=== PATIENT | female | born 1970 | race Caucasian/White ===

== ENCOUNTER → 2017-07-07 18:50 | Outpatient (REF) | payer BC, SELFPAY ==
[2017-07-07 19:31] LABS: Amphetamine/Metha Screen,Urine Negative ng/mL (<1000); Barbiturates Screen,Urine Negative ng/mL (<200); Benzodiazepines Screen,Urine Negative ng/mL (200); Cannabinoid Screen,Urine Negative ng/mL (<50); Cocaine Screen,Urine Negative ng/g (<300); Methadone Screen,Urine Negative ng/mL (<300); Opiate Screen,Urine Positive ng/mL (<300); Phencyclidine Screen,Urine Negative ng/mL (<25)
== END ==
LOC: LAB 18:50
PROVIDERS: Visit Provider Emergency Medicine
DX: Z79.891 Long term (current) use of opiate analgesic (principal)
CPT/HCPCS: 80305

== ENCOUNTER → 2017-08-07 10:11 | Outpatient (REF) | payer BC, SELFPAY ==
[2017-08-07 14:24] LABS: Amphetamine/Metha Screen,Urine Negative ng/mL (<1000); Barbiturates Screen,Urine Negative ng/mL (<200); Benzodiazepines Screen,Urine Negative ng/mL (200); Cannabinoid Screen,Urine Negative ng/mL (<50); Cocaine Screen,Urine Negative ng/g (<300); Methadone Screen,Urine Negative ng/mL (<300); Opiate Screen,Urine Positive ng/mL (<300); Phencyclidine Screen,Urine Negative ng/mL (<25)
== END ==
LOC: LAB 10:11
PROVIDERS: Visit Provider Nurse Practitioner Family
DX: Z79.899 Other long term (current) drug therapy (principal)
CPT/HCPCS: 80305

== ENCOUNTER → 2017-09-04 09:17 | Outpatient (CLI) | payer BC, SELFPAY ==
[2017-09-04 14:36] LABS: Amphetamine/Metha Screen,Urine Negative ng/mL (<1000); Barbiturates Screen,Urine Negative ng/mL (<200); Benzodiazepines Screen,Urine Negative ng/mL (200); Cannabinoid Screen,Urine Negative ng/mL (<50); Cocaine Screen,Urine Negative ng/g (<300); Methadone Screen,Urine Negative ng/mL (<300); Opiate Screen,Urine Negative ng/mL (<300); Phencyclidine Screen,Urine Negative ng/mL (<25)
== END ==
PROVIDERS: Visit Provider Nurse Practitioner Family
DX: Z79.899 Other long term (current) drug therapy (principal)
CPT/HCPCS: 80305

== ENCOUNTER → 2017-10-02 09:12 | Outpatient (CLI) | payer BC, SELFPAY ==
[2017-10-02 18:14] LABS: Amphetamine/Metha Screen,Urine Negative ng/mL (<1000); Barbiturates Screen,Urine Negative ng/mL (<200); Benzodiazepines Screen,Urine Negative ng/mL (200); Cannabinoid Screen,Urine Negative ng/mL (<50); Cocaine Screen,Urine Negative ng/g (<300); Methadone Screen,Urine Negative ng/mL (<300); Opiate Screen,Urine Negative ng/mL (<300); Phencyclidine Screen,Urine Negative ng/mL (<25)
[2017-10-02 18:21] LABS: Chol/HDL Ratio 7.1 (1-3.5); Cholesterol 300 mg/dL (140-200); HDL Cholesterol 42 mg/dL (29-89); LDL Cholesterol 204 mg/dL (0-130); Triglycerides 269 mg/dL (30-200); VLDL Cholesterol 54 mg/dL (0-40)
[2017-10-06 15:37] LABS: Vitamin D 25 Hydroxy 23.1 ng/mL (30.0-100.0)
[2017-10-12 19:08] LABS: Oxycodone (GC/MS) 658 ng/mL (Cutoff=100)
[2017-10-13 15:05] LABS: Opiates Negative (Cutoff=100); Oxymorphone (GC/MS) 1530 ng/mL (Cutoff=100)
== END ==
PROVIDERS: Visit Provider Nurse Practitioner Family
DX: Z79.899 Other long term (current) drug therapy (principal); R53.83 Other fatigue; E55.9 Vitamin D deficiency, unspecified
CPT/HCPCS: 80061; 80305; 80361; 80365; 82652; G0480

== ENCOUNTER → 2017-10-30 09:27 | Outpatient (CLI) | payer BC, SELFPAY ==
[2017-10-30 13:35] LABS: Amphetamine/Metha Screen,Urine Negative ng/mL (<1000); Barbiturates Screen,Urine Negative ng/mL (<200); Benzodiazepines Screen,Urine Negative ng/mL (200); Cannabinoid Screen,Urine Negative ng/mL (<50); Cocaine Screen,Urine Negative ng/g (<300); Methadone Screen,Urine Negative ng/mL (<300); Opiate Screen,Urine Negative ng/mL (<300); Phencyclidine Screen,Urine Negative ng/mL (<25)
== END ==
PROVIDERS: Visit Provider Nurse Practitioner Family
DX: Z79.899 Other long term (current) drug therapy (principal)
CPT/HCPCS: 80305

== ENCOUNTER 2017-11-11 14:06 | Outpatient (RCR) | payer BC, SELFPAY ==
--- NOTE | 2017-11-11 14:56 | HMH.PTOPEV ---
Rehab Outpatient Evaluation Rehab OP Evaluation Start: 11/11/17 14:44 Freq: Status: Active Protocol: Document 11/11/17 14:44 RANDI (Rec: 11/11/17 14:55 RANDI [id number]) Electronically Signed By Saleem Card, PT 11/11/17 14:44 Outpatient Therapy Subjective History Subjective History Pt reports h/o chronic LBP beginning after serious fall in 2002. Pt reports R > L sided LBP with severe radicular s/s from R hip to R foot at its worst. Pt reports previous MRI of lumbar spine revealed 'some disc buldges'. Chief Complaint Pain Spasms Stiff Paresthesia Weakness Symptom Type Ache Throb Sharp Dull Numbness Tingling Symptoms Relieved By Rest/Positioning Heat Symptoms Aggravated By Sitting Standing Bending/Stooping Physical Activity Twisting Lifting Prior Functional Limitations Lifting Housework Standing Walking Bending/Stooping Current Functional Limitations Lifting Housework Standing Sitting Walking Bending/Stooping Symptom Description Constant but Variable Level of pain today (0-10) 7 Pain scale - at its best (0-10) 7 Pain scale - at its worst (0-10) 9 Lumbopelvic Eval Posture Thoracic Spine Posture Standing Position Neutral Lumbar Spine Posture Standing Position Increased Lordosis Assistive device Assistive Devices None / NA Palapation tenderness left lumbar spinal tenderness Yes: 2/4 paraspinal tenderness Yes: 2/4 right lumbar spinal tenderness Yes: 3/4 paraspinal tenderness Yes: 3/4 buttock tenderness Yes: 3/4 Accessory Movement T-spine Vertebrae Accessory Movements Central P/A [place] that Elicit Symptoms T10 bilateral T11 bilateral T12
== END 2017-11-11 14:07 | disposition home or self-care (01) ==
LOC: PT 14:06
PROVIDERS: Family Provider Emergency Medicine; PCP Emergency Medicine; Visit Provider Nurse Practitioner Family
DX: M54.5 Low back pain (principal)
CPT/HCPCS: 97010; 97012; 97014; 97163; G0283

== ENCOUNTER → 2017-11-27 10:08 | Outpatient (CLI) | payer BC, SELFPAY ==
[2017-11-27 19:47] LABS: Amphetamine/Metha Screen,Urine Negative ng/mL (<1000); Barbiturates Screen,Urine Negative ng/mL (<200); Benzodiazepines Screen,Urine Negative ng/mL (200); Cannabinoid Screen,Urine Negative ng/mL (<50); Cocaine Screen,Urine Negative ng/g (<300); Methadone Screen,Urine Negative ng/mL (<300); Opiate Screen,Urine Positive ng/mL (<300); Phencyclidine Screen,Urine Negative ng/mL (<25)
== END ==
PROVIDERS: Visit Provider Nurse Practitioner Family
DX: Z79.899 Other long term (current) drug therapy (principal)
CPT/HCPCS: 80305

== ENCOUNTER → 2017-12-28 09:51 | Outpatient (CLI) | payer BC, SELFPAY ==
[2017-12-28 14:23] LABS: Amphetamine/Metha Screen,Urine Negative ng/mL (<1000); Barbiturates Screen,Urine Negative ng/mL (<200); Benzodiazepines Screen,Urine Negative ng/mL (200); Cannabinoid Screen,Urine Negative ng/mL (<50); Cocaine Screen,Urine Negative ng/g (<300); Methadone Screen,Urine Negative ng/mL (<300); Opiate Screen,Urine Positive ng/mL (<300); Phencyclidine Screen,Urine Negative ng/mL (<25)
[2017-12-30 02:12] LABS: Hep A Ab, IgM Negative (Negative); Hepatitis B Core Antibody IgM Negative (Negative); Hepatitis B Surface Antigen Negative (Negative)
[2017-12-31 08:03] LABS: Hepatitis C Antibody <0.1 s/co ratio (0.0-0.9)
== END ==
PROVIDERS: Visit Provider Nurse Practitioner Family
DX: Z79.899 Other long term (current) drug therapy (principal); Z20.5 Contact with and (suspected) exposure to viral hepatitis
CPT/HCPCS: 36415; 80074; 80305

== ENCOUNTER → 2018-01-25 10:20 | Outpatient (CLI) | payer BC, SELFPAY ==
[2018-01-25 13:38] LABS: Amphetamine/Metha Screen,Urine Negative ng/mL (<1000); Barbiturates Screen,Urine Negative ng/mL (<200); Benzodiazepines Screen,Urine Negative ng/mL (<200); Cannabinoid Screen,Urine Negative ng/mL (<50); Cocaine Screen,Urine Negative ng/mL (<300); Methadone Screen,Urine Negative ng/mL (<300); Opiate Screen,Urine Positive ng/mL (<300); Phencyclidine Screen,Urine Negative ng/mL (<25)
== END ==
PROVIDERS: Visit Provider Nurse Practitioner Family
DX: Z79.899 Other long term (current) drug therapy (principal)
CPT/HCPCS: 80305

== ENCOUNTER → 2018-02-26 09:11 | Outpatient (CLI) | payer BC, SELFPAY ==
[2018-02-26 14:24] LABS: Amphetamine/Metha Screen,Urine Negative ng/mL (<1000); Barbiturates Screen,Urine Negative ng/mL (<200); Benzodiazepines Screen,Urine Negative ng/mL (<200); Cannabinoid Screen,Urine Negative ng/mL (<50); Cocaine Screen,Urine Negative ng/mL (<300); Methadone Screen,Urine Negative ng/mL (<300); Opiate Screen,Urine Positive ng/mL (<300); Phencyclidine Screen,Urine Negative ng/mL (<25)
== END ==
PROVIDERS: Visit Provider Nurse Practitioner Family
DX: Z79.899 Other long term (current) drug therapy (principal)
CPT/HCPCS: 80305

== ENCOUNTER → 2018-05-18 13:43 | Outpatient (CLI) | payer BC, SELFPAY ==
[2018-05-18 15:31] LABS: Amphetamine/Metha Screen,Urine Negative ng/mL (<1000); Barbiturates Screen,Urine Negative ng/mL (<200); Benzodiazepines Screen,Urine Negative ng/mL (<200); Cannabinoid Screen,Urine Negative ng/mL (<50); Cocaine Screen,Urine Negative ng/mL (<300); Methadone Screen,Urine Negative ng/mL (<300); Opiate Screen,Urine Positive ng/mL (<300); Phencyclidine Screen,Urine Negative ng/mL (<25)
[2018-05-26 12:53] LABS: Opiates Negative ng/mL (Cutoff=100)
== END ==
PROVIDERS: PCP Nurse Practitioner Family; Visit Provider Nurse Practitioner Family
DX: Z79.899 Other long term (current) drug therapy (principal)
CPT/HCPCS: 80305; 80361; G0480

== ENCOUNTER → 2018-06-18 14:59 | Outpatient (CLI) | payer BC, SELFPAY ==
[2018-06-18 16:40] LABS: Amphetamine/Metha Screen,Urine Negative ng/mL (<1000); Barbiturates Screen,Urine Negative ng/mL (<200); Benzodiazepines Screen,Urine Negative ng/mL (<200); Cannabinoid Screen,Urine Negative ng/mL (<50); Cocaine Screen,Urine Negative ng/mL (<300); Methadone Screen,Urine Negative ng/mL (<300); Opiate Screen,Urine Positive ng/mL (<300); Phencyclidine Screen,Urine Negative ng/mL (<25)
== END ==
PROVIDERS: Emergency Medicine; Visit Provider Nurse Practitioner Family
DX: Z79.899 Other long term (current) drug therapy (principal)
CPT/HCPCS: 80305

== ENCOUNTER → 2018-06-21 13:13 | Outpatient (CLI) | payer BC, SELFPAY ==
[2018-06-21 14:30] LABS: Alanine Aminotransferase 56 U/L (12-78); Albumin Level 4.1 gm/dL (3.4-5.0); Albumin/Globulin Ratio 1.1 (1.1-1.8); Alkaline Phosphatase 78 U/L (46-116); Anion Gap 10.3 mEq/L (5-15); Aspartate Amino Transferase 28 U/L (15-37); Bilirubin,Total 0.3 mg/dL (0.2-1.0); Blood Urea Nitrogen 8 mg/dL (7-18); Calcium 9.7 mg/dL (8.5-10.1); Carbon Dioxide 30 mmol/L (21.0-32.0); Chloride 104 mmol/L (98-107); Chol/HDL Ratio 4.3 (1-3.5); Cholesterol 231 mg/dL (140-200); Creatinine,Serum 0.88 mg/dL (0.55-1.02); Estimated Glomerular Filt Rate 69 ml/min (>60); Free T4 (Free Thyroxine) 0.85 ng/dl (0.76-1.46); GFR (African American) 84 ML/MIN (>60); Globulin 3.7 gm/dl (1.3-3.2); Glucose 113 mg/dL (74-106); HDL Cholesterol 54 mg/dL (29-89); LDL Cholesterol 146 mg/dL (0-130); Potassium 4.3 mmoL/L (3.5-5.1); Sodium 140 mmol/L (136-145); Thyroid Stimulating Hormone 2.02 uIU/ml (0.358-3.740); Total Protein,Serum 7.8 gm/dL (6.4-8.2); Triglycerides 155 mg/dL (30-200); VLDL Cholesterol 31 mg/dL (0-40)
== END ==
PROVIDERS: Visit Provider Nurse Practitioner Family
DX: R53.83 Other fatigue (principal); E78.5 Hyperlipidemia, unspecified; E55.9 Vitamin D deficiency, unspecified
CPT/HCPCS: 80053; 80061; 82652; 84439; 84443

== ENCOUNTER → 2018-07-16 13:41 | Outpatient (CLI) | payer BC, SELFPAY ==
[2018-07-16 16:05] LABS: Amphetamine/Metha Screen,Urine Negative ng/mL (<1000); Barbiturates Screen,Urine Negative ng/mL (<200); Benzodiazepines Screen,Urine Negative ng/mL (<200); Cannabinoid Screen,Urine Negative ng/mL (<50); Cocaine Screen,Urine Negative ng/mL (<300); Methadone Screen,Urine Negative ng/mL (<300); Opiate Screen,Urine Positive ng/mL (<300); Phencyclidine Screen,Urine Negative ng/mL (<25)
== END ==
PROVIDERS: Visit Provider Nurse Practitioner Family
DX: Z79.899 Other long term (current) drug therapy (principal)
CPT/HCPCS: 80305

== ENCOUNTER → 2018-08-13 13:12 | Outpatient (CLI) | payer BC, SELFPAY ==
[2018-08-13 14:23] LABS: Amphetamine/Metha Screen,Urine Negative ng/mL (<1000); Barbiturates Screen,Urine Negative ng/mL (<200); Benzodiazepines Screen,Urine Negative ng/mL (<200); Cannabinoid Screen,Urine Negative ng/mL (<50); Cocaine Screen,Urine Negative ng/mL (<300); Methadone Screen,Urine Negative ng/mL (<300); Opiate Screen,Urine Positive ng/mL (<300); Phencyclidine Screen,Urine Negative ng/mL (<25)
== END ==
PROVIDERS: Visit Provider Emergency Medicine
DX: Z79.899 Other long term (current) drug therapy (principal)
CPT/HCPCS: 80305

== ENCOUNTER → 2018-09-09 14:07 | Outpatient (CLI) | payer BC, SELFPAY ==
--- NOTE | 2018-09-09 14:16 | MM_ITS ---
MM Dig screening mamm BI w/CAD CAD Screening COMPARISON: Digital mammograms with CAD 10/03/2016 and 02/02/2015 INDICATION: There is no personal or family history of breast cancer TECHNIQUE: Standard CC and MLO images were obtained. R2 CAD reviewed. FINDINGS: Scattered fibroglandular densities are seen in each breast. Again noted is a stable area of asymmetric glandular tissue upper outer quadrant left breast. There few benign-appearing microcalcifications is in each breast. There is a possible new nodular density lower central portion right breast at the 6:00 position. This likely is a small cyst or fibroadenoma but suggest follow-up ultrasound for additional evaluation. There are no suspicious microcalcifications in either breast. IMPRESSION: Fibrofatty parenchyma with possible new density right breast BI-RADS Category: 0 Need Additional Imaging Evaluation RECOMMENDED FOLLOW-UP: IMM - IMMEDIATE FOLLOW-UP RECOMMENDED (A letter has been sent to the patient regarding results of the study.)
--- NOTE | 2018-09-09 14:41 | MR_ITS ---
MR lumbar spine wo con, MR 3-d myelogram/MRCP Ordering Physician: Ellis White MD Patient Age: 47 years: Female HISTORY: Low back pain for 3 weeks. Right-sided low back pain. Right leg pain numbness tingling. HISTORY of sciatica TECHNIQUE: Sagittal STIR, T1, T2, axial T1 and T2. On 1.5T Siemens wide bore MRI. 3-D MR myelogram image set obtained & performed on MRI workstation. Additional sagittal thin section T2 weighted dataset obtained from this latter acquisition as well (---76 CPT) COMPARISON : January 2017 MRI lumbar spine FINDINGS The vertebral bodies are intact and the disc spaces been no compression fracture nor osseous lesion L5/S1. Central disc bulge/protrusion. . New feature since 2017. However it modest in size, remains fairly midline and does not does not impact the thecal sac on these images. But it does not appear to involve the exiting nerve root either. But it does not lateralize and does not involve foramen Neural foramen widely patent. Mild/moderate facet hypertrophy bilaterally. L4/5.. Moderate/ Moderate central canal spinal stenosis-overall appears more pronounced than 2017. This this narrowing the central canal is due mainly due to the prominent posterior elements, with generous ligamentum flavum along with moderate facet hypertrophy at this level narrowing the posterior spinal canal... Ligament flavum measures over 5 mm on left. Also mild mild diffuse disc bulge most evident towards left foramen,-appears similar to 2017 MRI. Above Features combine to yield Generous left foraminal encroachment..Surprising patient does not have left leg symptoms due to these features. There is mild/moderate right recess stenosis & foraminal encroachment L3/4. Disc intact with only scant disc bulge towards right foramen.. Mild facet hypertrophy/arthropathy.. Neural foramen widely patent L2/3. Disc intact. Scant posterior element hypertrophy.. Foramen widely patent bilateral. L1/2. Diffuse disc bulge.-Additional disc bulge central & just to the right of midline.. Although features slightly indents the anterior thecal sac midline and just the right of midline very slightly more evident. This appears similar to previous study on the sagittal image does appear to be perhaps very slightly more pronounced axial images. Minor posterior hypertrophic changes T 12/L1. Disc intact with only scant bulge hard disc to the left.. T11/T12. Minimal central spurring with minimal central disc protrusion. The conus ends appropriately at L1. 3-D MR myelogram image set nicely demonstrates more pronounced appearing spinal stenosis at the L4/5 level. This image sequence supports progressive narrowing of the thecal sac at L4/5.. Also note mild anterior indentation of thecal sac L1/2 from the previous fairly stable disc bulge/mild protrusion. IMPRESSION 1.... L4/5. Mild/Moderate spinal stenosis, which appears to have progressed since 2017 MRI.- The L4/5 Central canal stenosis is mainly due to posterior element hypertrophy:-with generous ligamentum flavum along with moderate facet hypertrophy at this level mainly narrowing the spinal canal. There is also mild disc bulge which becomes most evident towards left foramen. Features also yields generous left foraminal encroachment, & less pronounced mild/moderate right foraminal encroachment. 2.... L5/S1. Central disc protrusion at L5/S1 which extends slightly caudal-but remains midline & does not appear to impact the thecal sac. This Is a New feature versus 2007 (but does not appear to impact relevant structures).. 3....... L 1/2. Diffuse disc bulge with additional disc bulge central and just right of midline. This appears similar to previous study. Question only very slightly more evident..... Features Mildly indent anter
== END ==
PROVIDERS: PCP Emergency Medicine; Visit Provider Emergency Medicine
DX: Z12.31 Encounter for screening mammogram for malignant neoplasm of breast (principal); M54.5 Low back pain
CPT/HCPCS: 72148; 76376; 77067

== ENCOUNTER → 2018-09-10 13:52 | Outpatient (CLI) | payer BC, SELFPAY ==
[2018-09-10 14:55] LABS: Amphetamine/Metha Screen,Urine Negative ng/mL (<1000); Barbiturates Screen,Urine Negative ng/mL (<200); Benzodiazepines Screen,Urine Negative ng/mL (<200); Cannabinoid Screen,Urine Negative ng/mL (<50); Cocaine Screen,Urine Negative ng/mL (<300); Methadone Screen,Urine Negative ng/mL (<300); Opiate Screen,Urine Negative ng/mL (<300); Phencyclidine Screen,Urine Negative ng/mL (<25)
== END ==
PROVIDERS: Visit Provider Emergency Medicine
DX: Z79.899 Other long term (current) drug therapy (principal)
CPT/HCPCS: 80305

== ENCOUNTER → 2018-09-29 10:41 | Outpatient (CLI) | payer BC, SELFPAY ==
--- NOTE | 2018-09-29 10:42 | US_ITS ---
US breast RT complete INDICATION: Follow-up abnormal mammogram ORDERING PHYSICIAN: Ellis White MD PATIENT AGE: 48 years COMPARISON: None TECHNIQUE: Ultrasound performed of the right breast along with axilla FINDINGS: There is a 6 mm hypoechoic nodule in the 6:00 region near the nipple which does correspond to the mammographic abnormality. There is posterior acoustical enhancement. There are some low-level echoes within the nodule however, this could be due to reverberation artifact. Is felt to represent a cyst. The margins are however slightly irregular. No other abnormalities are evident. IMPRESSION: Mammographic abnormality likely corresponds to a complex cyst. Recommend 3 month sonographic and mammographic follow-up to confirm stability. Spot compression images of the nodule could be performed at that time as well BI-RADS Category: 3 Probably Benign Finding Short Term Follow-up RECOMMENDED FOLLOW-UP: 3M - 3 MONTH FOLLOWUP (A letter has been sent to the patient regarding results of the study.)
== END ==
PROVIDERS: PCP Emergency Medicine; Visit Provider Emergency Medicine
DX: R92.8 Other abnormal and inconclusive findings on diagnostic imaging of breast (principal)
CPT/HCPCS: 76641

== ENCOUNTER → 2018-11-09 14:43 | Outpatient (CLI) | payer BC, SELFPAY ==
[2018-11-09 16:16] LABS: Amphetamine/Metha Screen,Urine Negative ng/mL (<1000); Barbiturates Screen,Urine Negative ng/mL (<200); Benzodiazepines Screen,Urine Negative ng/mL (<200); Cannabinoid Screen,Urine Negative ng/mL (<50); Cocaine Screen,Urine Negative ng/mL (<300); Methadone Screen,Urine Negative ng/mL (<300); Opiate Screen,Urine Negative ng/mL (<300); Phencyclidine Screen,Urine Negative ng/mL (<25)
[2018-11-16 06:21] LABS: Opiates Negative ng/mL (Cutoff=100)
== END ==
PROVIDERS: Visit Provider Nurse Practitioner Family
DX: Z79.899 Other long term (current) drug therapy (principal)
CPT/HCPCS: 80305; 80361; G0480

== ENCOUNTER → 2018-12-10 13:08 | Outpatient (CLI) | payer BC, SELFPAY ==
[2018-12-10 17:41] LABS: Amphetamine/Metha Screen,Urine Negative ng/mL (<1000); Barbiturates Screen,Urine Negative ng/mL (<200); Benzodiazepines Screen,Urine Negative ng/mL (<200); Cannabinoid Screen,Urine Negative ng/mL (<50); Cocaine Screen,Urine Negative ng/mL (<300); Methadone Screen,Urine Negative ng/mL (<300); Opiate Screen,Urine Positive ng/mL (<300); Phencyclidine Screen,Urine Negative ng/mL (<25)
[2018-12-20 03:12] LABS: Opiates Negative ng/mL (Cutoff=100)
== END ==
PROVIDERS: Visit Provider Nurse Practitioner Family
DX: Z79.899 Other long term (current) drug therapy (principal); G89.29 Other chronic pain
CPT/HCPCS: 80305; 80361; G0480

== ENCOUNTER → 2018-12-30 13:03 | Outpatient (CLI) | payer BC, SELFPAY ==
--- NOTE | 2018-12-30 13:05 | US_ITS ---
US breast RT complete INDICATION: Follow-up abnormal mammogram ORDERING PHYSICIAN: Ellis White MD PATIENT AGE: 48 years COMPARISON: 09/29/2018 TECHNIQUE: Complete breast ultrasound performed with axilla FINDINGS: There is a persistent 5 mm hypoechoic nodule in the o'clock region of the right breast with some posterior acoustical enhancement. There are some low-level internal echoes which could be due to the small size or but could be due to some underlying debris. The nodule is oriented area of the lateral to the chest wall and is not significantly changed probably benign. IMPRESSION: No change in the hypoechoic 5 mm nodule in the 6:00 region of the right breast. May be due to complex cyst. Continued follow-up recommended BI-RADS Category: 3 Probably Benign Finding Short Term Follow-up RECOMMENDED FOLLOW-UP: 6M - 6 MONTH FOLLOW-UP (A letter has been sent to the patient regarding results of the study.)
--- NOTE | 2018-12-30 13:07 | MM_ITS ---
MM Dig mamm DX unilat RT CAD COMPARISON: Digital mammograms with CAD 09/09/2018 INDICATION: Short term follow-up of asymmetric density right breast TECHNIQUE: Spot compression MLO and CC views FINDINGS: The small benign-appearing nodular densities again seen which is stable and unchanged in size and appearance from the previous exam. The breasts is otherwise composed primarily of fat with very minimal scattered fibroglandular densities noted. IMPRESSION: Stable benign-appearing density right breast shown to be likely due to a complex cyst on previous ultrasound, recommend the patient continue with yearly screening mammography BI-RADS Category: 2 Benign Finding(s) RECOMMENDED FOLLOW-UP: 1YR - 1 YEAR FOLLOW-UP (A letter has been sent to the patient regarding results of the study.)
== END ==
PROVIDERS: PCP Emergency Medicine; Visit Provider Emergency Medicine
DX: N63.0 Unspecified lump in unspecified breast (principal)
CPT/HCPCS: 76641; 77065

== ENCOUNTER → 2019-01-10 10:13 | Outpatient (CLI) | payer BC, SELFPAY ==
--- NOTE | 2019-01-10 10:31 | XR_ITS ---
XR hand RT min 3V HISTORY: Pain ITS.REASON: ARTHRALGIA MULTIPLE SITES, BILAT HAND ARTHRITIS ORDERING PHYSICIAN: Roxanne Chong APRN PATIENT AGE: 48 years COMPARISON: 05/22/2015 FINDINGS: No fracture or dislocation. No lytic or blastic change. There is normal mineralization.. The joint spaces are well-preserved. No significant degenerative/arthritic changes. No erosive changes evident.. IMPRESSION: Negative, no acute finding
--- NOTE | 2019-01-10 10:31 | XR_ITS ---
XR foot LT min 3V HISTORY: ITS.REASON: ARTHRALGIA MULTIPLE SITES ORDERING PHYSICIAN: Roxanne Chong APRN PATIENT AGE: 48 years COMPARISON: The FINDINGS: No fracture or dislocation. No lytic or blastic change. There is normal mineralization.. The joint spaces are well-preserved. There are minimal osteoarthritic changes at the first metatarsophalangeal joint. Bony hypertrophic changes are present dorsally in the mid foot. IMPRESSION: Mild degenerative changes as described above
--- NOTE | 2019-01-10 10:31 | XR_ITS ---
XR hand LT min 3V HISTORY: Pain, ITS.REASON: ARTHRALGIA MULTIPLE SITES, ARTHRITIS BILAT HANDS ORDERING PHYSICIAN: Roxanne Chong APRN PATIENT AGE: 48 years FINDINGS: No fracture or dislocation. No lytic or blastic change. There is normal mineralization.. The joint spaces are well-preserved. No bony erosive process or significant degenerative change evident. IMPRESSION: Negative left hand. No significant change from 05/22/2015
--- NOTE | 2019-01-10 10:31 | XR_ITS ---
XR foot RT min 3V HISTORY: Foot pain ITS.REASON: ARTHRALGIA MULTIPLE SITES ORDERING PHYSICIAN: Roxanne Chong APRN PATIENT AGE: 48 years COMPARISON: None FINDINGS: There are minimal osteoarthritic changes at the first MTP joint. No fracture or dislocation. No lytic or blastic change. There is a thin 2 mm linear opacity along the plantar surface and distal aspect of the fifth metatarsal suspicious for a small foreign body such as a sliver of glass. Otherwise negative. IMPRESSION: 1. Minimal osteoarthritic change first MTP joint. 2. Suspect a small foreign body such as a sliver of glass along the distal aspect of the fifth metatarsal plantar aspect
[2019-01-10 10:46] LABS: Basophils % 0.5 % (0.1-2.0); Eosinophils # 0.1 K/mm3 (0.0-0.4); Eosinophils % 1.6 % (0.1-12.0); Hematocrit 41.6 % (37.0-47.0); Hemoglobin 13.8 g/dL (12.2-16.2); Lymphocytes # 2.5 K/mm3 (0.7-4.5); Lymphocytes % 46.9 % (10-50); Mean Corpuscular HGB Conc 33.1 g/dL (31.8-35.4); Mean Corpuscular Hemoglobin 29.9 pg (27.0-31.2); Mean Corpuscular Volume 90.3 fl (81-99); Mean Platelet Volume 8.8 fl (7.4-10.4); Monocytes # 0.3 K/mm3 (0.1-1.0); Monocytes % 5.5 % (1.7-9.3); Neutrophils # 2.4 K/mm3 (1.8-7.8); Neutrophils % 45.5 % (37.0-80.0); Platelet Count 288 K/mm3 (142-424); Red Blood Count 4.61 M/mm3 (4.20-5.40); Red Cell Distribution Width 13.3 % (11.5-17.5); White Blood Count 5.3 K/mm3 (4.8-10.8)
[2019-01-10 11:54] LABS: Erythrocyte Sedimentation Rate 19 mm/hr (0-20)
[2019-01-10 12:30] LABS: Alanine Aminotransferase 42 U/L (12-78); Albumin/Globulin Ratio 1.1 (1.1-1.8); Alkaline Phosphatase 63 U/L (46-116); Anion Gap 14.9 mEq/L (5-15); Aspartate Amino Transferase 23 U/L (15-37); Bilirubin,Total 0.2 mg/dL (0.2-1.0); Blood Urea Nitrogen 8 mg/dL (7-18); Calcium 9.4 mg/dL (8.5-10.1); Carbon Dioxide 29 mmol/L (21.0-32.0); Chloride 105 mmol/L (98-107); Cholesterol 201 mg/dL (140-200); Creatinine,Serum 0.95 mg/dL (0.55-1.02); Estimated Glomerular Filt Rate 63 ml/min (>60); GFR (African American) 76 ML/MIN (>60); Globulin 3.6 gm/dl (1.3-3.2); Glucose 124 mg/dL (74-106); HDL Cholesterol 40 mg/dL (29-89); LDL Cholesterol 126 mg/dL (0-130); Potassium 3.9 mmoL/L (3.5-5.1); Sodium 145 mmol/L (136-145); Thyroid Stimulating Hormone 4.23 uIU/ml (0.358-3.740); Total Protein,Serum 7.6 gm/dL (6.4-8.2); Triglycerides 177 mg/dL (30-200); VLDL Cholesterol 35 mg/dL (0-40)
[2019-01-10 12:40] LABS: C-Reactive Protein < 0.2 mg/L (0.0-0.9)
[2019-01-11 16:37] LABS: Free T4 (Free Thyroxine) 0.99 ng/dl (0.76-1.46)
[2019-01-11 17:16] LABS: Hemoglobin A1C 6.6 % (0.0-7.0)
[2019-01-12 13:54] LABS: Vitamin D 25 Hydroxy 33.2 ng/mL (30.0-100.0)
== END ==
PROVIDERS: Visit Provider Nurse Practitioner Family
DX: I10 Essential (primary) hypertension (principal); E78.2 Mixed hyperlipidemia; M19.90 Unspecified osteoarthritis, unspecified site; M25.50 Pain in unspecified joint; E55.9 Vitamin D deficiency, unspecified; L30.9 Dermatitis, unspecified; R79.89 Other specified abnormal findings of blood chemistry; R73.9 Hyperglycemia, unspecified
CPT/HCPCS: 36415; 73130; 73630; 80053; 80061; 82652; 83036; 84439; 84443; 85025; 85651; 86140

== ENCOUNTER → 2019-01-25 13:29 | Outpatient (POV) | payer BC, SELFPAY | PROVIDERS: Visit Provider Dermatology | DX: Z00.00 Encounter for general adult medical examination without abnormal findings (principal) ==

== ENCOUNTER → 2019-02-07 13:55 | Outpatient (POV) | payer BC, SELFPAY ==
[2019-02-07 14:20] VITALS: BP 169/89; PULSE 121; RESP 18; O2SAT 99; BMI 38.4
[2019-02-07 14:48] VITALS: BP 169/89; PULSE 121; RESP 18; O2SAT 98; BMI 38.4
--- NOTE | 2019-02-07 15:33 | HMH.PMCON ---
Assessment and Plan (1) Spinal stenosis Current visit: No Status: Chronic Qualifiers: Spinal region: lumbar Category: Medical Code(s): M48.00 - Spinal stenosis, site unspecified (2) Lumbar back pain Current visit: No Status: Chronic Category: Medical Code(s): M54.5 - Low back pain - Assessment and plan all Dx Assessment and Plan for all problems:: We will start with an L4-L5 lumbar epidural steroid injection. Patient is not a narcotic candidate in regards to our clinic. Patient instructed to talk to her primary care physician in regards to her medication. Patient may be a good vertiflex procedure candidate. I gave her information in regards to this. I will follow-up with her after injection reassess her symptoms at that time she is not on any anticoagulation therapy she is continuing a home stretching program. She is failed physical therapy, anti-inflammatories, medications. Dr. Alcala has reviewed this note and agrees with this plan of care. This note was dictated using voice recognition software and may contain errors or omissions HPI - Data of Consult Consult date: 02/07/19 Requesting Physician: Justine Gomez APRN Primary Care Provider: Roxanne Chong APRN - Consult Narrative Reason for consult: Back pain History of present illness: Ms. Cohn is a 48 year old female who presents today to discuss her back pain. She was seen previously several years ago and was given an SI joint injection. After that we did not follow-up with her. Patient is currently complaining of pain when she is standing and walking that is relieved when she is leaning forward. She does have significant ligamentum flavum hypertrophy along with canal stenosis at L4-L5 L5-S1. Patient and I discussed potential epidural injections along with vertiflex procedure. Patient is currently on Percocet from her primary care physician. Today she is asking about increasing her narcotic medication I discussed that she would have to talk about this with her PCP. CC: Justine Gomez APRN [facility] History I have reviewed the patient's past medical history: Yes Medical History: Reports:: Hypertension *Have you ever received a pneumonia vaccine?: Yes *Have you received a flu vaccine this season?: Yes Other Medical History: Reports: Fibromyalgia, Other Laterality Cases: Bilateral: Arthroscopy Shoulder, Tonsillectomy Other Surgeries: Yes: No Previous Surgery, Cholecystectomy, Hysterectomy-Partial, Other Amputation: No Fractures: No - *Social History Smoking Status: Never smoker Alcohol Intake: never Alcohol Intake Frequency:: other Substance Use Type: denies use *Occupational Status:: other Housing: house Household Members: spouse *Travel in the last 8 weeks: None Family Hx:: No significant family history Review of Systems - Review of Systems ROS General: no recent weight change, no fever, no sleep disturbances Respiratory: no cough, no shortness of air, no recurring pulmonary infections Cardiovascular/Peripheral Vascular: No chest pain, No palpitations, no edema, no shortness of breath. Gastrointestinal: no incontinence, normal bowel movements reported Genitourinary: no incontinence Musculoskeletal: Back pain Psychiatric: normal mood/ affect Neurological: [denies weakness in extremities], [denies balance issues] Meds Home Medications Medication Instructions Recorded Confirmed Type fluticasone propionate 50 1 spray INTRANASAL QDAY 30 Days 07/16/18 12/10/18 Rx mcg/actuation nasal #9.9 g spray,suspension pregabalin 75 mg capsule 75 mg PO BID #60 cap 07/16/18 12/10/18 Rx bupropion HCl 75 mg tablet 75 mg PO BID #60 tab 08/13/18 12/10/18 Rx ergocalciferol (vitamin D2) 50,000 50,000 unit PO QWEEK #4 cap 09/05/18 12/10/18 Rx unit capsule hydrochlorothiazide 12.5 mg capsule 12.5 mg PO DAILY #90 cap 10/11/18 12/10/18 Rx loratadine 10 mg tablet 10 mg PO DAILY #30 tab 11/09/18 12/10/18 Rx oxycodone
--- NOTE | 2019-02-07 15:37 | P.CONS_ITS ---
Assessment and Plan (1) Spinal stenosis Current visit: No Status: Chronic Qualifiers: Spinal region: lumbar Category: Medical Code(s): M48.00 - Spinal stenosis, site unspecified (2) Lumbar back pain Current visit: No Status: Chronic Category: Medical Code(s): M54.5 - Low back pain - Assessment and plan all Dx Assessment and Plan for all problems:: We will start with an L4-L5 lumbar epidural steroid injection. Patient is not a narcotic candidate in regards to our clinic. Patient instructed to talk to her primary care physician in regards to her medication. Patient may be a good vertiflex procedure candidate. I gave her information in regards to this. I will follow-up with her after injection reassess her symptoms at that time she is not on any anticoagulation therapy she is continuing a home stretching program. She is failed physical therapy, anti-inflammatories, medications. Dr. Alcala has reviewed this note and agrees with this plan of care. This note was dictated using voice recognition software and may contain errors or omissions HPI - Data of Consult Consult date: 02/07/19 Requesting Physician: Justine Gomez APRN Primary Care Provider: Roxanne Chong APRN - Consult Narrative Reason for consult: Back pain History of present illness: Ms. Cohn is a 48 year old female who presents today to discuss her back pain. She was seen previously several years ago and was given an SI joint injection. After that we did not follow-up with her. Patient is currently complaining of pain when she is standing and walking that is relieved when she is leaning forward. She does have significant ligamentum flavum hypertrophy along with canal stenosis at L4-L5 L5-S1. Patient and I discussed potential epidural injections along with vertiflex procedure. Patient is currently on Percocet from her primary care physician. Today she is asking about increasing her narcotic medication I discussed that she would have to talk about this with her PCP. CC: Justine Gomez APRN [facility] History I have reviewed the patient's past medical history: Yes Medical History: Reports:: Hypertension *Have you ever received a pneumonia vaccine?: Yes *Have you received a flu vaccine this season?: Yes Other Medical History: Reports: Fibromyalgia, Other Laterality Cases: Bilateral: Arthroscopy Shoulder, Tonsillectomy Other Surgeries: Yes: No Previous Surgery, Cholecystectomy, Hysterectomy- Partial, Other Amputation: No Fractures: No - *Social History Smoking Status: Never smoker Alcohol Intake: never Alcohol Intake Frequency:: other Substance Use Type: denies use *Occupational Status:: other Housing: house Household Members: spouse *Travel in the last 8 weeks: None Family Hx:: No significant family history Review of Systems - Review of Systems ROS General: no recent weight change, no fever, no sleep disturbances Respiratory: no cough, no shortness of air, no recurring pulmonary infections Cardiovascular/Peripheral Vascular: No chest pain, No palpitations, no edema, no shortness of breath. Gastrointestinal: no incontinence, normal bowel movements reported Genitourinary: no incontinence Musculoskeletal: Back pain Psychiatric: normal mood/ affect Neurological: [denies weakness in extremities], [denies balance issues] Meds Home Medications Medication Instructions Recorded Confirmed Type fluticasone propionate 50 1 spray INTRANASAL QDAY 30 Days 07/16/1812/10
== END ==
PROVIDERS: PCP Nurse Practitioner Family; Visit Provider Clinical Nurse Specialist Family Health
DX: M48.00 Spinal stenosis, site unspecified (principal); M54.5 Low back pain
CPT/HCPCS: 99212

== ENCOUNTER → 2019-03-02 13:43 | Outpatient (CLI) | payer BC, SELFPAY ==
[2019-03-02 17:51] LABS: Amphetamine/Metha Screen,Urine Negative ng/mL (<1000); Barbiturates Screen,Urine Negative ng/mL (<200); Benzodiazepines Screen,Urine Negative ng/mL (<200); Cannabinoid Screen,Urine Negative ng/mL (<50); Cocaine Screen,Urine Negative ng/mL (<300); Methadone Screen,Urine Negative ng/mL (<300); Opiate Screen,Urine Negative ng/mL (<300); Phencyclidine Screen,Urine Negative ng/mL (<25)
[2019-03-12 05:08] LABS: Oxycodone (GC/MS) 182 ng/mL (Cutoff=100)
[2019-03-12 18:01] LABS: Opiates Negative (Cutoff=100); Oxymorphone (GC/MS) 186 ng/mL (Cutoff=100)
== END ==
PROVIDERS: Visit Provider Emergency Medicine
DX: Z79.899 Other long term (current) drug therapy (principal)
CPT/HCPCS: 80305; 80361; 80365; G0480

== ENCOUNTER → 2019-03-28 09:39 | Outpatient (POV) | payer BC, SELFPAY ==
[2019-03-28 10:04] VITALS: BP 154/98; PULSE 78; RESP 18; O2SAT 99; BMI 37.8
--- NOTE | 2019-03-28 10:32 | HMH.PAINSOAP ---
[facility] Pain Management SOAP Note Subjective:: Patient is a pleasant 48-year-old white female who presents today for follow-up after epidural steroid injection. Patient did not get any relief from her epidural steroid injection. Her biggest complaint is pain when she is standing or walking. She has to bend over to alleviate this. She had spinal stenosis at the L4-L5 level. She is uninterested in any surgical intervention. She is interested in a vertical flex. I do believe it would be beneficial for her at this time she is unable to walk more than 5 minutes and not able to stand more than 10 minutes. She has to sit and alleviate her pain. She has tried and failed NSAIDs, anti-inflammatories, narcotic medications and injection therapy she has been treated conservatively for over 6 months. She is had this pain for over a year. ROS General: no recent weight change, no fever, no sleep disturbances Respiratory: no cough, no shortness of air, no recurring pulmonary infections Cardiovascular/Peripheral Vascular: No chest pain, No palpitations, no edema, no shortness of breath. Gastrointestinal: no incontinence, normal bowel movements reported Genitourinary: no incontinence Musculoskeletal: Back pain, leg pain Psychiatric: normal mood/ affect Neurological: [denies weakness in extremities], [denies balance issues] Objective:: Physical Exam General: Alert and oriented x3, no acute distress, pleasant and cooperative, [on room air] Lungs: Resps E/U, Symmetrical chest expansion, Eyes: PERRL Musculoskeletal: Flexion and extension of lumbar spine somewhat guarded secondary to pain, deep tendon reflexes normal, strength in upper and lower extremities [5/5], normal gait noted Neurological: speech clear, finisher wallboard and plasterboard equal, no gross sensory deficits Assessment:: Degenerative disc disease lumbar spine with lumbar radiculopathy and spinal stenosis with neurogenic claudication Plan:: We will schedule a flexion and extension and AP x-ray of the lumbar vertebrae to see if she is a vert a flex candidate. Believe an L4-L5 for to flex procedure would be beneficial for her. Patient is not on any anticoagulation therapy. She is continuing a home stretching program. I will follow-up with her after her procedure reassess her symptoms at that time she is been instructed to call the office if she has any issues prior to her next appointment. Dr. Alcala has reviewed this note and agrees with this plan of care. This note was dictated using voice recognition software and may contain errors or omissions [facility] History I have reviewed the patient's past medical history: Yes Medical History: Reports:: Hypertension Denies:: Cancer, Diabetes Mellitus Type 1, Diabetes Mellitus Type 2, MRSA, Seizures *Have you ever received a pneumonia vaccine?: Yes *Have you received a flu vaccine this season?: Yes Other Medical History: Reports: Fibromyalgia, Other Laterality Cases: Left: Arthroscopy Shoulder, Bilateral: Tonsillectomy Other Surgeries: Yes: No Previous Surgery, Cholecystectomy, Hysterectomy-Partial, Other Amputation: No Fractures: No - *Social History Smoking Status: Never smoker Alcohol Intake: never Alcohol Intake Frequency:: other Substance Use Type: denies use *Occupational Status:: other Housing: house Household Members: spouse *Travel in the last 8 weeks: None Family Hx:: Diabetes, Hypertension, Heart Attack, Cancer
--- NOTE | 2019-03-28 10:38 | P.CONS_ITS ---
[facility] Pain Management SOAP Note Subjective:: Patient is a pleasant 48-year-old white female who presents today for follow-up after epidural steroid injection. Patient did not get any relief from her epidural steroid injection. Her biggest complaint is pain when she is standing or walking. She has to bend over to alleviate this. She had spinal stenosis at the L4-L5 level. She is uninterested in any surgical intervention. She is interested in a vertical flex. I do believe it would be beneficial for her at this time she is unable to walk more than 5 minutes and not able to stand more than 10 minutes. She has to sit and alleviate her pain. She has tried and failed NSAIDs, anti-inflammatories, narcotic medications and injection therapy she has been treated conservatively for over 6 months. She is had this pain for over a year. ROS General: no recent weight change, no fever, no sleep disturbances Respiratory: no cough, no shortness of air, no recurring pulmonary infections Cardiovascular/Peripheral Vascular: No chest pain, No palpitations, no edema, no shortness of breath. Gastrointestinal: no incontinence, normal bowel movements reported Genitourinary: no incontinence Musculoskeletal: Back pain, leg pain Psychiatric: normal mood/ affect Neurological: [denies weakness in extremities], [denies balance issues] Objective:: Physical Exam General: Alert and oriented x3, no acute distress, pleasant and cooperative, [on room air] Lungs: Resps E/U, Symmetrical chest expansion, Eyes: PERRL Musculoskeletal: Flexion and extension of lumbar spine somewhat guarded secondary to pain, deep tendon reflexes normal, strength in upper and lower extremities [5/5], normal gait noted Neurological: speech clear, central supply assistant equal, no gross sensory deficits Assessment:: Degenerative disc disease lumbar spine with lumbar radiculopathy and spinal stenosis with neurogenic claudication Plan:: We will schedule a flexion and extension and AP x-ray of the lumbar vertebrae to see if she is a vert a flex candidate. Believe an L4-L5 for to flex procedure would be beneficial for her. Patient is not on any anticoagulation therapy. She is continuing a home stretching program. I will follow-up with her after her procedure reassess her symptoms at that time she is been instructed to call the office if she has any issues prior to her next appointment. Dr. Alcala has reviewed this note and agrees with this plan of care. This note was dictated using voice recognition software and may contain errors or omissions [facility] History I have reviewed the patient's past medical history: Yes Medical History: Reports:: Hypertension Denies:: Cancer, Diabetes Mellitus Type 1, Diabetes Mellitus Type 2, MRSA, Seizures *Have you ever received a pneumonia vaccine?: Yes *Have you received a flu vaccine this season?: Yes Other Medical History: Reports: Fibromyalgia, Other Laterality Cases: Left: Arthroscopy Shoulder, Bilateral: Tonsillectomy Other Surgeries: Yes: No Previous Surgery, Cholecystectomy, Hysterectomy- Partial, Other Amputation: No Fractures: No - *Social History Smoking Status: Never smoker Alcohol Intake: never Alcohol Intake Frequency:: other Substance Use Type: denies use *Occupational Status:: other Housing: house Household Members: spouse *Travel in the last 8 weeks: None Family Hx:: Diabetes, Hypertension, Heart Attack, Cancer
--- NOTE | 2019-03-28 13:15 | XR_ITS ---
PROCEDURE: XR LUMBAR SPINE 2-3V CLINICAL INDICATION: BACK PAIN COMPARISON: No exams were available for comparison FINDINGS: Flexion and extension views are obtained of the lumbar spine showing no abnormal subluxation in flexion or extension. There is limited flexion and extension. Degenerate disc disease is present at L1-L2 L2-L3 L4-5 and L5-S1. Incidental note made of a left renal calculus measuring 5 mm. IMPRESSION: Degenerative changes lumbar spine with no abnormal subluxation in flexion or extension Left nephrolithiasis Dictated by: Erik Leroy MD 03/28/2019 13:40 Electronically signed by Erik Leroy MD in [place] 03/28/2019 13:40
== END ==
PROVIDERS: PCP Emergency Medicine; Visit Provider Clinical Nurse Specialist Family Health
DX: M48.062 Spinal stenosis, lumbar region with neurogenic claudication (principal); M51.16 Intervertebral disc disorders with radiculopathy, lumbar region
CPT/HCPCS: 72100; 99212

== ENCOUNTER → 2019-04-13 13:19 | Outpatient (CLI) | payer BC, SELFPAY ==
[2019-04-13 14:58] LABS: Amphetamine/Metha Screen,Urine Negative ng/mL (<1000); Barbiturates Screen,Urine Negative ng/mL (<200); Benzodiazepines Screen,Urine Negative ng/mL (<200); Cannabinoid Screen,Urine Negative ng/mL (<50); Cocaine Screen,Urine Negative ng/mL (<300); Methadone Screen,Urine Negative ng/mL (<300); Opiate Screen,Urine Negative ng/mL (<300); Phencyclidine Screen,Urine Negative ng/mL (<25)
[2019-04-21 09:52] LABS: Opiates Negative ng/mL (Cutoff=100)
== END ==
PROVIDERS: Visit Provider Emergency Medicine
DX: Z79.899 Other long term (current) drug therapy (principal); G89.29 Other chronic pain
CPT/HCPCS: 80305; 80361; G0480

== ENCOUNTER → 2019-04-28 08:26 | Outpatient (POV) | payer BC, SELFPAY ==
[2019-04-28 08:36] VITALS: BP 133/85; PULSE 92; RESP 18; O2SAT 98; BMI 36.8
--- NOTE | 2019-04-28 08:39 | HMH.PAINSOAP ---
[facility] Pain Management SOAP Note Subjective:: Patient is a pleasant 48-year-old white female who presents today for follow-up after superion vertiflex implant at L4-L5. Patient says she has started to develop significant pain in her right lower extremity. She says she is having difficulty walking. She says the pain starts in her right lower back with radiation into her right foot. Patient says that the pain worsens when she stands or walks. Patient did call the office yesterday and asked to come in this morning. She says that she is not getting any relief with her oral opiates. Patient does take Percocet 5 mg 1 tablet p.o. 4 times daily, as prescribed by her primary care provider. She also takes Lyrica. Review of Systems General: No recent weight changes, no fever, no sleep disturbances Respiratory: No cough, no shortness of air, no recurring pulmonary infections Cardiovascular/peripheral vascular: No chest pain, no palpitations, no edema, no shortness of breath Gastrointestinal: No new onset incontinence, normal bowel movements reported Genitourinary: No new onset incontinence Musculoskeletal: Back pain, right leg pain Psychiatric: Normal mood/affect Neurological: [Denies weakness in extremities], [denies balance issues] Objective:: Physical exam General: Alert and oriented x3, no acute distress, pleasant and cooperative, [on room air] Lungs: Respirations even and unlabored, symmetrical chest expansion Eyes: PERRL Musculoskeletal: Flexion and extension of lumbar spine somewhat guarded secondary to pain, deep tendon reflexes normal, strength in upper and lower extremities [5/5], [abnormal gait noted] Neurological: Speech clear, fighting vehicle systems maintainer equal, no gross sensory deficit Assessment:: Degenerative disc disease lumbar spine with spinal stenosis and neurogenic claudication symptoms at L4-L5 Plan:: We will order the patient prednisone 20 mg 1 tablet p.o. twice daily for 5 days. We will also order the patient Flexeril 10 mg 1 tablet p.o. 3 times daily for 5 days. We will see her back in the clinic on Thursday the following week to reassess her symptoms. Patient is scheduled to return to have her sutures removed. Patient's been instructed if her pain continues to call the office. Dr. Alcala has reviewed this note and agrees with this plan of care. This note was dictated using voice recognition software and make contain errors or omissions. [facility] History Medical History: Reports:: Diabetes Mellitus Type 2 (MEDICATED), Hypertension Denies:: Cancer, Diabetes Mellitus Type 1, Internal Pacemaker, MRSA, Seizures *Have you ever received a pneumonia vaccine?: Yes *Have you received a flu vaccine this season?: No Other Medical History: Reports: Fibromyalgia, Other. Denies: Blood Transfusion Reaction Laterality Cases: Left: Arthroscopy Shoulder, Bilateral: Tonsillectomy Other Surgeries: Yes: No Previous Surgery, Cholecystectomy, Hysterectomy-Partial, Other. No: Pacemaker Amputation: No Fractures: No - *Social History Smoking Status: Never smoker Alcohol Intake: never Alcohol Intake Frequency:: other Substance Use Type: denies use *Occupational Status:: other Housing: house Household Members: spouse *Travel in the last 8 weeks: None Family Hx:: Diabetes, Hypertension, Heart Attack, Cancer
--- NOTE | 2019-04-28 08:43 | P.CONS_ITS ---
[facility] Pain Management SOAP Note Subjective:: Patient is a pleasant 48-year-old white female who presents today for follow-up after superion vertiflex implant at L4-L5. Patient says she has started to develop significant pain in her right lower extremity. She says she is having difficulty walking. She says the pain starts in her right lower back with radiation into her right foot. Patient says that the pain worsens when she stands or walks. Patient did call the office yesterday and asked to come in this morning. She says that she is not getting any relief with her oral opiates. Patient does take Percocet 5 mg 1 tablet p.o. 4 times daily, as prescribed by her primary care provider. She also takes Lyrica. Review of Systems General: No recent weight changes, no fever, no sleep disturbances Respiratory: No cough, no shortness of air, no recurring pulmonary infections Cardiovascular/peripheral vascular: No chest pain, no palpitations, no edema, no shortness of breath Gastrointestinal: No new onset incontinence, normal bowel movements reported Genitourinary: No new onset incontinence Musculoskeletal: Back pain, right leg pain Psychiatric: Normal mood/affect Neurological: [Denies weakness in extremities], [denies balance issues] Objective:: Physical exam General: Alert and oriented x3, no acute distress, pleasant and cooperative, [on room air] Lungs: Respirations even and unlabored, symmetrical chest expansion Eyes: PERRL Musculoskeletal: Flexion and extension of lumbar spine somewhat guarded secondary to pain, deep tendon reflexes normal, strength in upper and lower extremities [5/5], [abnormal gait noted] Neurological: Speech clear, weaver hand equal, no gross sensory deficit Assessment:: Degenerative disc disease lumbar spine with spinal stenosis and neurogenic claudication symptoms at L4-L5 Plan:: We will order the patient prednisone 20 mg 1 tablet p.o. twice daily for 5 days. We will also order the patient Flexeril 10 mg 1 tablet p.o. 3 times daily for 5 days. We will see her back in the clinic on Thursday the following week to reassess her symptoms. Patient is scheduled to return to have her sutures removed. Patient's been instructed if her pain continues to call the office. Dr. Alcala has reviewed this note and agrees with this plan of care. This note was dictated using voice recognition software and make contain errors or omissions. [facility] History Medical History: Reports:: Diabetes Mellitus Type 2 (MEDICATED), Hypertension Denies:: Cancer, Diabetes Mellitus Type 1, Internal Pacemaker, MRSA, Seizures *Have you ever received a pneumonia vaccine?: Yes *Have you received a flu vaccine this season?: No Other Medical History: Reports: Fibromyalgia, Other. Denies: Blood Transfusion Reaction Laterality Cases: Left: Arthroscopy Shoulder, Bilateral: Tonsillectomy Other Surgeries: Yes: No Previous Surgery, Cholecystectomy, Hysterectomy-[place] l, Other. No: Pacemaker Amputation: No Fractures: No - *Social History Smoking Status: Never smoker Alcohol Intake: never Alcohol Intake Frequency:: other Substance Use Type: denies use *Occupational Status:: other Housing: house Household Members: spouse *Travel in the last 8 weeks: None Family Hx:: Diabetes, Hypertension, Heart Attack, Cancer
== END ==
PROVIDERS: PCP Emergency Medicine; Visit Provider Clinical Nurse Specialist Family Health
DX: M48.062 Spinal stenosis, lumbar region with neurogenic claudication (principal)
CPT/HCPCS: 99212

== ENCOUNTER → 2019-05-03 09:07 | Outpatient (POV) | payer BC, SELFPAY ==
[2019-05-03 09:21] VITALS: BP 160/91; PULSE 84; RESP 18; O2SAT 98; BMI 36.0
--- NOTE | 2019-05-03 10:01 | HMH.PAINSOAP ---
[facility] Pain Management SOAP Note Subjective:: She is a pleasant 48-year-old white female who presents today for follow-up after a superior onward to flex implant at L4-L5. Patient was having significant pain postprocedure however she was put on his round of steroids and is doing much better. She will have her stitches removed today. Patient states that her pain has improved significantly. She rates her pain a 4 out of 10 today. We will put her on some anti-inflammatories for the short-term to help with any kind of facet inflammation post for to flex procedure. Patient states that she cannot stand longer walk longer at this time. ROS General: no recent weight change, no fever, no sleep disturbances Respiratory: no cough, no shortness of air, no recurring pulmonary infections Cardiovascular/Peripheral Vascular: No chest pain, No palpitations, no edema, no shortness of breath. Gastrointestinal: no new onset incontinence, normal bowel movements reported Genitourinary: no new onset incontinence Musculoskeletal: Back pain, leg pain Psychiatric: normal mood/ affect Neurological: [denies new onset weakness in extremities], [denies new onset balance issues] Objective:: Physical Exam General: Alert and oriented x3, no acute distress, pleasant and cooperative, [on room air] Lungs: Resps E/U, Symmetrical chest expansion, Eyes: PERRL Musculoskeletal: Flexion and extension of lumbar spine somewhat guarded secondary to pain, deep tendon reflexes normal, strength in upper and lower extremities [5/5], normal gait noted Neurological: speech clear, correctional sergeant equal, no gross sensory deficits Assessment:: Spinal stenosis with neurogenic claudication Plan:: We will see the patient back in 1 week. Stitches were removed the incision was well approximated no sign symptoms of infection. Steri-Strips and skin glue were applied we will see her back in 1 week. We will start her on naproxen 500 mg 1 p.o. twice daily until then. Patient's been instructed to call the office if she has any issues prior to her next appointment. Dr. Alcala has reviewed this note and agrees with this plan of care. This note was dictated using voice recognition software and may contain errors or omissions [facility] History I have reviewed the patient's past medical history: Yes Medical History: Reports:: Diabetes Mellitus Type 2 (MEDICATED), Hypertension Denies:: Cancer, Diabetes Mellitus Type 1, Internal Pacemaker, MRSA, Seizures *Have you ever received a pneumonia vaccine?: No *Have you received a flu vaccine this season?: No Other Medical History: Reports: Fibromyalgia, Other. Denies: Blood Transfusion Reaction Laterality Cases: Left: Arthroscopy Shoulder, Bilateral: Tonsillectomy Other Surgeries: Yes: No Previous Surgery, Cholecystectomy, Hysterectomy-Partial, Other. No: Pacemaker Amputation: No Fractures: No - *Social History Smoking Status: Never smoker Alcohol Intake: never Alcohol Intake Frequency:: other Substance Use Type: denies use *Occupational Status:: other Housing: house Household Members: spouse *Travel in the last 8 weeks: None Family Hx:: Diabetes, Hypertension, Heart Attack, Cancer
--- NOTE | 2019-05-03 10:04 | P.CONS_ITS ---
[facility] Pain Management SOAP Note Subjective:: She is a pleasant 48-year-old white female who presents today for follow-up after a superior onward to flex implant at L4-L5. Patient was having significant pain postprocedure however she was put on his round of steroids and is doing much better. She will have her stitches removed today. Patient states that her pain has improved significantly. She rates her pain a 4 out of 10 today. We will put her on some anti-inflammatories for the short-term to help with any kind of facet inflammation post for to flex procedure. Patient states that she cannot stand longer walk longer at this time. ROS General: no recent weight change, no fever, no sleep disturbances Respiratory: no cough, no shortness of air, no recurring pulmonary infections Cardiovascular/Peripheral Vascular: No chest pain, No palpitations, no edema, no shortness of breath. Gastrointestinal: no new onset incontinence, normal bowel movements reported Genitourinary: no new onset incontinence Musculoskeletal: Back pain, leg pain Psychiatric: normal mood/ affect Neurological: [denies new onset weakness in extremities], [denies new onset balance issues] Objective:: Physical Exam General: Alert and oriented x3, no acute distress, pleasant and cooperative, [on room air] Lungs: Resps E/U, Symmetrical chest expansion, Eyes: PERRL Musculoskeletal: Flexion and extension of lumbar spine somewhat guarded secondary to pain, deep tendon reflexes normal, strength in upper and lower extremities [5/5], normal gait noted Neurological: speech clear, hospital sales representative equal, no gross sensory deficits Assessment:: Spinal stenosis with neurogenic claudication Plan:: We will see the patient back in 1 week. Stitches were removed the incision was well approximated no sign symptoms of infection. Steri-Strips and skin glue were applied we will see her back in 1 week. We will start her on naproxen 500 mg 1 p.o. twice daily until then. Patient's been instructed to call the office if she has any issues prior to her next appointment. Dr. Alcala has reviewed this note and agrees with this plan of care. This note was dictated using voice recognition software and may contain errors or omissions [facility] History I have reviewed the patient's past medical history: Yes Medical History: Reports:: Diabetes Mellitus Type 2 (MEDICATED), Hypertension Denies:: Cancer, Diabetes Mellitus Type 1, Internal Pacemaker, MRSA, Seizures *Have you ever received a pneumonia vaccine?: No *Have you received a flu vaccine this season?: No Other Medical History: Reports: Fibromyalgia, Other. Denies: Blood Transfusion Reaction Laterality Cases: Left: Arthroscopy Shoulder, Bilateral: Tonsillectomy Other Surgeries: Yes: No Previous Surgery, Cholecystectomy, Hysterectomy- Partial, Other. No: Pacemaker Amputation: No Fractures: No - *Social History Smoking Status: Never smoker Alcohol Intake: never Alcohol Intake Frequency:: other Substance Use Type: denies use *Occupational Status:: other Housing: house Household Members: spouse *Travel in the last 8 weeks: None Family Hx:: Diabetes, Hypertension, Heart Attack, Cancer
== END ==
PROVIDERS: PCP Emergency Medicine; Visit Provider Clinical Nurse Specialist Family Health
DX: M48.062 Spinal stenosis, lumbar region with neurogenic claudication (principal)
CPT/HCPCS: 99212

== ENCOUNTER → 2019-05-10 09:48 | Outpatient (POV) | payer BC, SELFPAY ==
[2019-05-10 10:54] VITALS: BP 147/98; PULSE 106; RESP 18; O2SAT 98; BMI 36.6
--- NOTE | 2019-05-10 15:28 | HMH.PAINSOAP ---
[facility] Pain Management SOAP Note Subjective:: Patient is a pleasant 48-year-old white female who presents today for follow-up after vert a flex procedure. Stitches have been removed overall she is doing extremely well she denies any issues at this time she rates her pain a 5 out of 10. Patient was given some Vimovo which was very useful for her she would like to continue this however due to insurance approvals we will have to call in the prescription separately we will call in naproxen and Nexium to be taken together. Patient states that she is noticing that she can walk longer and stand for longer periods of time ROS General: no recent weight change, no fever, no sleep disturbances Respiratory: no cough, no shortness of air, no recurring pulmonary infections Cardiovascular/Peripheral Vascular: No chest pain, No palpitations, no edema, no shortness of breath. Gastrointestinal: no new onset incontinence, normal bowel movements reported Genitourinary: no new onset incontinence Musculoskeletal: Pain Psychiatric: normal mood/ affect, [denies depression], [denies anxiety] Neurological: [denies new onset weakness in extremities], [denies new onset balance issues] Objective:: Physical Exam General: Alert and oriented x3, no acute distress, pleasant and cooperative, [on room air] Lungs: Resps E/U, Symmetrical chest expansion, Eyes: PERRL Musculoskeletal: Flexion and extension of lumbar spine somewhat guarded secondary to pain, deep tendon reflexes normal, strength in upper and lower extremities [5/5], slightly antalgic gait noted Neurological: speech clear, varnish maker helper equal, no gross sensory deficits Assessment:: Degenerative disc disease lumbar spine with spinal stenosis and neurogenic claudication Plan:: We will follow-up with the patient in 1 month reassess her symptoms at that time she is been instructed to get continue with her anti-inflammatories and also to call the office if she has any issues prior to her next appointment. Dr. Alcala has reviewed this note and agrees with this plan of care. This note was dictated using voice recognition software and may contain errors or omissions [facility] History I have reviewed the patient's past medical history: Yes Medical History: Reports:: Diabetes Mellitus Type 2 (MEDICATED), Hypertension Denies:: Cancer, Diabetes Mellitus Type 1, Internal Pacemaker, MRSA, Seizures *Have you ever received a pneumonia vaccine?: Yes *Have you received a flu vaccine this season?: Yes Other Medical History: Reports: Fibromyalgia, Other. Denies: Blood Transfusion Reaction Laterality Cases: Left: Arthroscopy Shoulder, Bilateral: Tonsillectomy Other Surgeries: Yes: No Previous Surgery, Cholecystectomy, Hysterectomy-Partial, Other. No: Pacemaker Amputation: No Fractures: No - *Social History Smoking Status: Never smoker Alcohol Intake: never Alcohol Intake Frequency:: other Substance Use Type: denies use *Occupational Status:: other Housing: house Household Members: spouse *Travel in the last 8 weeks: None Family Hx:: Diabetes, Hypertension, Heart Attack, Cancer
--- NOTE | 2019-05-10 15:32 | P.CONS_ITS ---
[facility] Pain Management SOAP Note Subjective:: Patient is a pleasant 48-year-old white female who presents today for follow-up after vert a flex procedure. Stitches have been removed overall she is doing extremely well she denies any issues at this time she rates her pain a 5 out of 10. Patient was given some Vimovo which was very useful for her she would like to continue this however due to insurance approvals we will have to call in the prescription separately we will call in naproxen and Nexium to be taken together. Patient states that she is noticing that she can walk longer and stand for longer periods of time ROS General: no recent weight change, no fever, no sleep disturbances Respiratory: no cough, no shortness of air, no recurring pulmonary infections Cardiovascular/Peripheral Vascular: No chest pain, No palpitations, no edema, no shortness of breath. Gastrointestinal: no new onset incontinence, normal bowel movements reported Genitourinary: no new onset incontinence Musculoskeletal: Pain Psychiatric: normal mood/ affect, [denies depression], [denies anxiety] Neurological: [denies new onset weakness in extremities], [denies new onset balance issues] Objective:: Physical Exam General: Alert and oriented x3, no acute distress, pleasant and cooperative, [on room air] Lungs: Resps E/U, Symmetrical chest expansion, Eyes: PERRL Musculoskeletal: Flexion and extension of lumbar spine somewhat guarded secondary to pain, deep tendon reflexes normal, strength in upper and lower e xtremities [5/5], slightly antalgic gait noted Neurological: speech clear, kettle room helper equal, no gross sensory deficits Assessment:: Degenerative disc disease lumbar spine with spinal stenosis and neurogenic claudication Plan:: We will follow-up with the patient in 1 month reassess her symptoms at that time she is been instructed to get continue with her anti-inflammatories and also to call the office if she has any issues prior to her next appointment. Dr. Alcala has reviewed this note and agrees with this plan of care. This note was dictated using voice recognition software and may contain errors or omissions [facility] History I have reviewed the patient's past medical history: Yes Medical History: Reports:: Diabetes Mellitus Type 2 (MEDICATED), Hypertension Denies:: Cancer, Diabetes Mellitus Type 1, Internal Pacemaker, MRSA, Seizures *Have you ever received a pneumonia vaccine?: Yes *Have you received a flu vaccine this season?: Yes Other Medical History: Reports: Fibromyalgia, Other. Denies: Blood Transfusion Reaction Laterality Cases: Left: Arthroscopy Shoulder, Bilateral: Tonsillectomy Other Surgeries: Yes: No Previous Surgery, Cholecystectomy, Hysterectomy- Partial, Other. No: Pacemaker Amputation: No Fractures: No - *Social History Smoking Status: Never smoker Alcohol Intake: never Alcohol Intake Frequency:: other Substance Use Type: denies use *Occupational Status:: other Housing: house Household Members: spouse *Travel in the last 8 weeks: None Family Hx:: Diabetes, Hypertension, Heart Attack, Cancer
== END ==
PROVIDERS: PCP Emergency Medicine; Visit Provider Clinical Nurse Specialist Family Health
DX: M48.062 Spinal stenosis, lumbar region with neurogenic claudication (principal); M51.36 Other intervertebral disc degeneration, lumbar region; Z09 Encounter for follow-up examination after completed treatment for conditions other than malignant neoplasm
CPT/HCPCS: 99212

== ENCOUNTER → 2019-08-23 14:40 | Outpatient (CLI) | payer BC, SELFPAY ==
--- NOTE | 2019-08-23 14:40 | MM_ITS ---
PROCEDURE: MM DIG MAMM BI DX W/CAD CLINICAL INDICATION: SCREENING LT , DX RT COMPARISON: [facility] DIG MAMM-SCREEN JEAN PIERRE W/CAD from 10/03/2016 [facility] MM Dig screening mamm BI w/CAD from 09/09/2018 DIG MAMM-DX UNI-RT from 12/30/2018 TECHNIQUE: Standard CC and MLO images and 3D Tomosynthesis was obtained. R2 CAD reviewed. Additional cone compression views of the right breast were performed in the CC and MLO projections. FINDINGS: Breasts are of average density. Benign appearing circumscribed nodule in the inferior and medial aspect of the right breast is again noted and not significantly changed. Benign appearing calcifications are seen bilaterally. A well-circumscribed 3.6 millimeter nodular density is seen in the medial retroareolar region of the left breast on the CC view. It is not confirmed with certainty on MLO images and is probably benign. Short interval follow-up is recommended. IMPRESSION: BI-RAD Category: 3 probably benign findings bilaterally six-month follow-up exam is recommended FOLLOW-UP: Six-month follow-up exam bilaterally. (A letter has been sent to the patient regarding results of the study.) Dictated by: Anders Nicole 08/23/2019 18:53 Electronically signed by Anders Nicole in [place] 08/23/2019 18:53
--- NOTE | 2019-08-23 14:40 | US_ITS ---
PROCEDURE: US BREAST RT COMPLETE CLINICAL INDICATION: abn us 6 mth f/u COMPARISON: BREASTRT US breast RT complete from 12/30/2018 FINDINGS: At 6 o'clock near the nipple a 3.6 x 3.5 x 2.6 millimeter hypoechoic nodule is noted. This correlates with the finding on the previous ultrasound exam where similar nodule 4.6 x 5.3 x 3.7 millimeters was noted. The lesion contains some internal echoes and is felt to be most consistent with a complicated cyst. IMPRESSION: BI-RADS category 3 probably benign finding six-month follow-up exam is recommended. Dictated by: Anders Nicole 08/23/2019 18:52 Electronically signed by Anders Nicole in [place] 08/23/2019 18:52
== END ==
PROVIDERS: PCP Emergency Medicine; Visit Provider Emergency Medicine
DX: R92.8 Other abnormal and inconclusive findings on diagnostic imaging of breast (principal)
CPT/HCPCS: 76641; 77062; 77066; G0279

== ENCOUNTER → 2019-08-24 14:32 | Outpatient (CLI) | payer BC, SELFPAY ==
[2019-08-24 15:46] LABS: Benzodiazepines Screen,Urine Negative ng/ml (<200)
[2019-08-24 15:47] LABS: Amphetamine/Metha Screen,Urine Negative ng/ml (<1000); Barbiturates Screen,Urine Negative ng/ml (<200)
[2019-08-24 15:48] LABS: Cannabinoid Screen,Urine Negative ng/ml (<50)
[2019-08-24 15:49] LABS: Cocaine Screen,Urine Negative ng/ml (<300); Methadone Screen,Urine Negative ng/ml (<300)
[2019-08-24 15:50] LABS: Opiate Screen,Urine Negative ng/ml (<300); Phencyclidine Screen,Urine Negative ng/ml (<25)
[2019-09-01 10:28] LABS: Oxycodone (GC/MS) 993 ng/mL (Cutoff=100)
[2019-09-01 12:33] LABS: Opiates Negative (Cutoff=100); Oxymorphone (GC/MS) 1246 ng/mL (Cutoff=100)
== END ==
PROVIDERS: Visit Provider Emergency Medicine
DX: Z79.899 Other long term (current) drug therapy (principal)
CPT/HCPCS: 80305; 80361; 80365; G0480

== ENCOUNTER → 2020-02-29 13:35 | Outpatient (CLI) | payer BC, SELFPAY ==
--- NOTE | 2020-02-29 13:35 | US_ITS ---
PROCEDURE: US BREAST RT COMPLETE CLINICAL INDICATION: 6 mth f/u COMPARISON: US US BREAST RT COMPLETE from 08/23/2019 FINDINGS: There is a tiny hypoechoic cystic lesion at the 6 o'clock position measuring 0.4 by 0.4 x 0.3 cm. Again it shows internal echoes and likely is a stable complicated cyst unchanged from previous exam. Again noted are couple normal appearing nodes. There is no other suspicious cystic or solid lesion identified. IMPRESSION: Stable small benign-appearing and likely complex cyst and I believe no further evaluation is indicated at this time. Dictated by: Dr. Edwin Bird MD 03/23/2020 10:05 Dr. Edwin Bird MD in [place] 03/23/2020 10:05
--- NOTE | 2020-02-29 13:35 | MM_ITS ---
PROCEDURE: MM DIG MAMM BI DX W/CAD Digital Breast Tomosynthesis Included CLINICAL INDICATION: 6 mth f/u COMPARISON: MG [facility] MM Dig screening mamm BI w/CAD from 09/09/2018 MG DIG MAMM-DX UNI-RT from 12/30/2018 MG MM DIG MAMM BI DX W/CAD from 08/23/2019 TECHNIQUE: Standard CC and MLO images and 3D Tomosynthesis was obtained. R2 CAD reviewed. FINDINGS: Primarily of fat with scattered fibroglandular densities throughout each breast. The small benign-appearing nodular density central portion right breast is again seen stable and unchanged in size and overall appearance from the previous exam. The similar appearing small nodular density deep to the nipple left breast is stable as well. Again noted a couple of benign-appearing microcalcifications deep to the nipple left breast. There is no new or suspicious lesion in either breast and no suspicious microcalcifications. IMPRESSION: Fibrofatty parenchyma with stable nodular densities in each breast. BI-RAD Category: 2 Benign Finding(s) FOLLOW-UP: 1YR 1 Year Follow-up (A letter has been sent to the patient regarding results of the study.) Dictated by: Dr. Edwin Bird MD 03/06/2020 09:55 Dr. Edwin Bird MD in [place] 03/06/2020 09:55
== END ==
PROVIDERS: PCP Emergency Medicine; Visit Provider Emergency Medicine
DX: R92.8 Other abnormal and inconclusive findings on diagnostic imaging of breast (principal)
CPT/HCPCS: 76641; 77062; 77066; G0279

== ENCOUNTER → 2020-03-06 14:26 | Outpatient (CLI) | payer BC, SELFPAY ==
--- NOTE | 2020-03-06 14:26 | MR_ITS ---
PROCEDURE: MR LUMBAR SPINE WO CON CLINICAL INDICATION: back pain PT C/O LBP WITH SCIATICA DOWN RT LEG. PT STATES HX OF LUMBAR SPACER. PRIOR LUMBAR X-RAYS 03/28/2019 >PRIOR MRI L-SPINE 09/09/2009 COMPARISON: MR SPLUMBWO MR lumbar spine wo con from 09/09/2018 CR XR LUMBAR SPINE 2-3V from 03/28/2019 TECHNIQUE: Standard multiplanar multiecho sequences are performed without contrast. 3-D MIP and myelographic images are also rendered and reviewed FINDINGS: There is normal alignment. The spinal cord ends at the L1 level. Multilevel lumbar spondylosis is present as detailed below. T11-T12: Mild degenerative disc disease with minimal bulging disc. T12-L1: Mild degenerative disc disease. L1-L2: There is a small right paracentral disc herniation with minimal inferior extrusion. This has increased in size compared to the previous exam and is causing mild right lateral recess narrowing and is abutting the anterior medial aspect of the right L2 nerve root. L2-L3: Unremarkable. L3-L4: Mild facet and ligamentum hypertrophy. L4-5: Bulging disc with minimal broad-based central disc protrusion with moderate facet and ligamentum hypertrophy causing moderate right and moderate to severe left-sided foraminal narrowing not significantly changed. There is bilateral lateral recess narrowing from the facet and ligamentum hypertrophy along with canal stenosis which appears slightly worse on the sagittal images with slight increase in bulging of the disc compared to the previous exam. Metallic artifact is present posteriorly at this level L5-S1: There is mild concentric bulging disc along with facet ligamentum hypertrophy. IMPRESSION: 1. L1-L2: There is a small right paracentral disc herniation with minimal inferior extrusion. This has increased in size compared to the previous exam and is causing mild right lateral recess narrowing and is abutting the anterior medial aspect of the right L2 nerve root. 2. L4-5: Bulging disc with minimal broad-based central disc protrusion with moderate facet and ligamentum hypertrophy causing moderate right and moderate to severe left-sided foraminal narrowing not significantly changed. There is bilateral lateral recess narrowing from the facet and ligamentum hypertrophy along with canal stenosis which appears slightly worse on the sagittal images with slight increase in bulging of the disc compared to the previous exam. Metallic artifact is present posteriorly at this level 3. L5-S1: There is mild concentric bulging disc along with facet ligamentum hypertrophy Dictated by: Erik Leroy MD 03/08/2020 10:09 Erik Leroy MD in [place] 03/08/2020 10:09
== END ==
LOC: RAD 14:26
PROVIDERS: PCP Emergency Medicine; Visit Provider Emergency Medicine
DX: M54.5 Low back pain (principal)
CPT/HCPCS: 72148; 76376

== ENCOUNTER → 2020-08-28 16:12 | Outpatient (CLI) | payer BC, SELFPAY ==
[2020-08-28 16:49] LABS: Chloride 104 mmol/L (98-107)
[2020-08-28 16:50] LABS: Potassium 4.3 mmoL/L (3.5-5.1); Sodium 142 mmol/L (136-145)
[2020-08-28 16:52] LABS: Alanine Aminotransferase 35 U/L (12-78); Anion Gap 12.3 mEq/L (5-15); Aspartate Amino Transferase 38 U/L (14-36); Blood Urea Nitrogen 16 mg/dl (7-17); Carbon Dioxide 30 mmol/L (22.0-30.0); Estimated Glomerular Filt Rate 77 ml/min (>60); GFR (African American) 93 ML/MIN (>60)
[2020-08-28 16:53] LABS: Albumin Level 5.1 g/dl (3.5-5.0); Albumin/Globulin Ratio 1.4 (1.1-1.8); Alkaline Phosphatase 74 U/L (38-126); Bilirubin,Total 0.4 mg/dl (0.2-1.3); Calcium 10.7 mg/dl (8.4-10.2); Chol/HDL Ratio 5.5 (1-3.5); Cholesterol 258 mg/dl (140-200); Globulin 3.6 g/dL (1.3-3.2); Glucose 140 mg/dl (74-100); HDL Cholesterol 47 mg/dl (40-60); Total Protein,Serum 8.7 g/dl (6.3-8.2); Triglycerides 166 mg/dl (30-150); VLDL Cholesterol 33 mg/dL (0-40)
[2020-08-28 16:59] LABS: Basophils % 0.4 % (0.1-2.0); Eosinophils # 0.1 K/mm3 (0.0-0.4); Eosinophils % 1.7 % (0.1-12.0); Hematocrit 41.6 % (37.0-47.0); Hemoglobin 13.5 g/dL (12.2-16.2); Lymphocytes # 2.5 K/mm3 (0.7-4.5); Lymphocytes % 45.5 % (10-50); Mean Corpuscular HGB Conc 32.4 g/dL (31.8-35.4); Mean Corpuscular Hemoglobin 29.5 pg (27.0-31.2); Mean Corpuscular Volume 90.9 fl (81-99); Mean Platelet Volume 9.6 fl (7.4-10.4); Monocytes # 0.3 K/mm3 (0.1-1.0); Monocytes % 6.1 % (1.7-9.3); Neutrophils # 2.5 K/mm3 (1.8-7.8); Neutrophils % 46.3 % (37.0-80.0); Platelet Count 262 K/mm3 (142-424); Red Blood Count 4.58 M/mm3 (4.20-5.40); Red Cell Distribution Width 13.6 % (11.5-17.5); White Blood Count 5.4 K/mm3 (4.8-10.8)
[2020-08-28 17:04] LABS: Direct LDL Cholesterol 168.61 mg/dL (100-129)
[2020-08-28 17:09] LABS: 25-OH Vitamin D, Total 36.3 ng/mL (30-100)
[2020-08-28 17:11] LABS: Free T4 (Free Thyroxine) 1.11 ng/dl (0.78-2.19)
[2020-08-28 17:23] LABS: Thyroid Stimulating Hormone 4.42 uIU/mL (0.465-4.68)
[2020-08-28 18:42] LABS: Hemoglobin A1C 6.2 % (4.0-6.0)
[2020-08-28 23:52] LABS: Amphetamine/Metha Screen,Urine Negative ng/ml (<1000); Barbiturates Screen,Urine Negative ng/ml (<200)
[2020-08-28 23:53] LABS: Benzodiazepines Screen,Urine Negative ng/ml (<200); Cannabinoid Screen,Urine Negative ng/ml (<50)
[2020-08-28 23:55] LABS: Methadone Screen,Urine Negative ng/ml (<300)
[2020-08-28 23:56] LABS: Opiate Screen,Urine Negative ng/ml (<300)
[2020-08-28 23:57] LABS: Cocaine Screen,Urine Negative ng/ml (<300)
[2020-08-28 23:58] LABS: Phencyclidine Screen,Urine Negative ng/ml (<25)
[2020-08-29 00:24] LABS: Microalbumin < 6.000 mg/L (0-16.7)
[2020-08-29 00:32] LABS: Creatinine,Urine Random 61 mg/dL (Not Estab.)
== END ==
PROVIDERS: Visit Provider Emergency Medicine
DX: E11.9 Type 2 diabetes mellitus without complications (principal); E55.9 Vitamin D deficiency, unspecified; Z79.899 Other long term (current) drug therapy; Z79.84 Long term (current) use of oral hypoglycemic drugs
CPT/HCPCS: 80053; 80061; 80305; 82043; 82306; 82570; 83036; 84439; 84443; 85025

== ENCOUNTER → 2020-10-26 14:03 | Outpatient (CLI) | payer BC, SELFPAY ==
[2020-10-26 14:26] LABS: Amphetamine/Metha Screen,Urine Negative ng/ml (<1000)
[2020-10-26 14:27] LABS: Barbiturates Screen,Urine Negative ng/ml (<200); Benzodiazepines Screen,Urine Negative ng/ml (<200)
[2020-10-26 14:28] LABS: Cannabinoid Screen,Urine Negative ng/ml (<50)
[2020-10-26 14:29] LABS: Cocaine Screen,Urine Negative ng/ml (<300); Methadone Screen,Urine Negative ng/ml (<300)
[2020-10-26 14:30] LABS: Opiate Screen,Urine Negative ng/ml (<300)
[2020-10-26 14:31] LABS: Phencyclidine Screen,Urine Negative ng/ml (<25)
== END ==
PROVIDERS: Visit Provider Emergency Medicine
DX: Z79.899 Other long term (current) drug therapy (principal)
CPT/HCPCS: 80305

== ENCOUNTER → 2020-12-24 13:46 | Outpatient (CLI) | payer BC, SELFPAY ==
[2020-12-24 14:30] LABS: Amphetamine/Metha Screen,Urine Negative ng/ml (<1000); Barbiturates Screen,Urine Negative ng/ml (<200)
[2020-12-24 14:32] LABS: Benzodiazepines Screen,Urine Negative ng/ml (<200)
[2020-12-24 14:33] LABS: Cannabinoid Screen,Urine Negative ng/ml (<50)
[2020-12-24 14:34] LABS: Cocaine Screen,Urine Negative ng/ml (<300); Methadone Screen,Urine Negative ng/ml (<300)
[2020-12-24 14:35] LABS: Opiate Screen,Urine Negative ng/ml (<300)
[2020-12-24 14:36] LABS: Phencyclidine Screen,Urine Negative ng/ml (<25)
== END ==
PROVIDERS: Visit Provider Emergency Medicine
DX: Z79.899 Other long term (current) drug therapy (principal)
CPT/HCPCS: 80305

== ENCOUNTER → 2021-02-20 14:09 | Outpatient (CLI) | payer BC, SELFPAY ==
[2021-02-20 14:41] LABS: Amphetamine/Metha Screen,Urine Negative ng/ml (<1000); Benzodiazepines Screen,Urine Negative ng/ml (<200)
[2021-02-20 14:42] LABS: Barbiturates Screen,Urine Negative ng/ml (<200)
[2021-02-20 14:43] LABS: Cannabinoid Screen,Urine Negative ng/ml (<50); Methadone Screen,Urine Negative ng/ml (<300)
[2021-02-20 14:44] LABS: Cocaine Screen,Urine Negative ng/ml (<300)
[2021-02-20 14:45] LABS: Opiate Screen,Urine Positive ng/ml (<300); Phencyclidine Screen,Urine Negative ng/ml (<25)
== END ==
PROVIDERS: Visit Provider Emergency Medicine
DX: M54.5 Low back pain (principal)
CPT/HCPCS: 80305

== ENCOUNTER → 2021-04-17 13:15 | Outpatient (CLI) | payer BC, SELFPAY | PROVIDERS: PCP Emergency Medicine; Visit Provider Nurse Practitioner | DX: Z20.822 Contact with and (suspected) exposure to COVID-19 (principal); U07.1 COVID-19 | CPT/HCPCS: C9803; U0003; U0005 ==

== ENCOUNTER → 2021-08-28 14:49 | Outpatient (CLI) | payer SELFPAY ==
[2021-08-28 13:30] LABS: Basophils # 0.1 K/mm3 (0-0.2); Basophils % 0.9 % (0.1-2.0); Eosinophils # 0.1 K/mm3 (0.0-0.4); Eosinophils % 1.5 % (0.1-12.0); Hematocrit 41.9 % (37.0-47.0); Hemoglobin 13.9 g/dL (12.2-16.2); Lymphocytes # 2.4 K/mm3 (0.7-4.5); Lymphocytes % 40.8 % (10-50); Mean Corpuscular HGB Conc 33.2 g/dL (31.8-35.4); Mean Corpuscular Hemoglobin 29.7 pg (27.0-31.2); Mean Corpuscular Volume 89.3 fl (81-99); Mean Platelet Volume 10.4 fl (7.4-10.4); Monocytes # 0.4 K/mm3 (0.1-1.0); Monocytes % 7.1 % (1.7-9.3); Neutrophils # 2.9 K/mm3 (1.8-7.8); Neutrophils % 49.7 % (37.0-80.0); Platelet Count 347 K/mm3 (142-424); Red Blood Count 4.69 M/mm3 (4.20-5.40); Red Cell Distribution Width 13.5 % (11.5-17.5); White Blood Count 5.9 K/mm3 (4.8-10.8)
[2021-08-28 13:56] LABS: Chloride 100 mmol/L (98-107); Sodium 138 mmol/L (136-145)
[2021-08-28 13:58] LABS: Alanine Aminotransferase 43 U/L (12-78); Aspartate Amino Transferase 56 U/L (14-36); Blood Urea Nitrogen 15 mg/dl (7-17); Estimated Glomerular Filt Rate 76 ml/min (>60); GFR (African American) 92 ML/MIN (>60)
[2021-08-28 13:59] LABS: Albumin Level 5.1 g/dl (3.5-5.0); Albumin/Globulin Ratio 1.5 (1.1-1.8); Alkaline Phosphatase 90 U/L (38-126); Bilirubin,Total 0.5 mg/dl (0.2-1.3); Carbon Dioxide 26 mmol/L (22.0-30.0); Cholesterol 217 mg/dl (140-200); Globulin 3.3 g/dL (1.3-3.2); Glucose 142 mg/dl (74-100); HDL Cholesterol 43 mg/dl (40-60); Total Protein,Serum 8.4 g/dl (6.3-8.2); Triglycerides 162 mg/dl (30-150); VLDL Cholesterol 32 mg/dL (0-40)
[2021-08-28 14:03] LABS: Hemoglobin A1C 6.6 % (4.0-6.0)
[2021-08-28 14:11] LABS: Direct LDL Cholesterol 151.22 mg/dL (100-129)
[2021-08-28 14:13] LABS: Microalbumin/Creatinine Ratio 38.1
[2021-08-28 14:15] LABS: 25-OH Vitamin D, Total 23.1 ng/mL (30-100)
[2021-08-28 14:16] LABS: Free T4 (Free Thyroxine) 1.23 ng/dl (0.78-2.19)
[2021-08-28 14:18] LABS: Creatinine,Urine Random 60 mg/dL (Not Estab.)
[2021-08-28 14:23] LABS: Benzodiazepines Screen,Urine Negative ng/ml (<200)
[2021-08-28 14:24] LABS: Amphetamine/Metha Screen,Urine Negative ng/ml (<1000); Barbiturates Screen,Urine Negative ng/ml (<200)
[2021-08-28 14:25] LABS: Methadone Screen,Urine Negative ng/ml (<300)
[2021-08-28 14:26] LABS: Cannabinoid Screen,Urine Negative ng/ml (<50); Cocaine Screen,Urine Negative ng/ml (<300)
[2021-08-28 14:27] LABS: Opiate Screen,Urine Negative ng/ml (<300)
[2021-08-28 14:28] LABS: Phencyclidine Screen,Urine Negative ng/ml (<25)
[2021-08-28 14:30] LABS: Thyroid Stimulating Hormone 4.57 uIU/mL (0.465-4.68)
== END ==
PROVIDERS: Visit Provider Emergency Medicine
DX: E11.9 Type 2 diabetes mellitus without complications (principal); E55.9 Vitamin D deficiency, unspecified; E66.9 Obesity, unspecified; Z68.37 Body mass index [BMI] 37.0-37.9, adult; Z79.84 Long term (current) use of oral hypoglycemic drugs; Z79.899 Other long term (current) drug therapy
CPT/HCPCS: 80053; 80061; 80305; 82043; 82306; 82570; 83036; 84439; 84443; 85025

== ENCOUNTER → 2021-09-10 12:19 | Outpatient (CLI) | payer BC, SELFPAY | PROVIDERS: PCP Emergency Medicine; Visit Provider Nurse Practitioner Family | DX: R00.2 Palpitations (principal) | CPT/HCPCS: 93270 ==

== ENCOUNTER → 2021-10-07 13:51 | Outpatient (CLI) | payer BC, SELFPAY ==
--- NOTE | 2021-10-07 13:52 | CA_ITS ---
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 Machine: [place] RVT Ht: 5 ft 4 in Wt: 231lbs BSA: 2.08 BP: 160/102 mmHg Indications: MURMUR,HX MVP,TACHYCARDIA,OBESITY,DM,HTN,HLD 2D Dimensions LVOT 2.34 cm (M/F) 1.5-2.5 LA Volume 38.90 mL LA Volume Index 18.70 mL/m2 (M/F) 16-34 M-Mode Dimensions RVDd 2.99 cm (0.9-2.6) LA Diam 3.25 cm (1.9-4.0) LVDd 4.51 cm (3.5-5.7) Ao Diam 3.18 cm (2.0-3.7) LVDs 2.99 cm (3.5-5.7) IVSd 0.71 cm (0.6-1.1) PWd 1.07 cm (0.6-1.1) EF (Teich) 62.60% FS 33.70% EDV (Teich) 92.90 mL TAPSE 2.64 (<1.7) ESV (Teich) 34.70 mL LV Diastology E Decel Time 200.00 (160-240 msec) E/A Ratio 1.0 MED E' 7.80 (< 7 cm/sec) E'/MED E' Ratio 8.41 (>14) LAT E' 7.20 (<10 cm/sec) E/LAT E' Ratio 9.11 (>14) Aortic Valve AO Peak GR. 7.30 mmHg Mitral Valve MV E Max Michael. 66.00 (40-130 cm/s) MV A Velocity 64.00 (40-130 cm/s) E/A Ratio 1.03 MV Decel. Time 200.00 (160-240 ms) MV PHT 59.00 ms Pulmonary Valve PV Peak Velocity 98.00 (50-150 cm/s) Tricuspid Valve TR P. Velocity 266.00 cm/s RAP Estimate 10.00 mmHg RVSP 38.30 mmHg Left Ventricle Left atrium is mildly enlarged, left ventricle is normal size, mild concentric left ventricular hypertrophy, estimated ejection fraction 55% with no regional wall motion abnormality, grade 1 diastolic dysfunction seen without tissue Doppler evidence of raise left atrial pressure. Right Ventricle Right atrium and right ventricle are mildly enlarged with normal contractility. Aortic Valve Aortic valve is minimally thickened and fibrosed there is no aortic stenosis or aortic insufficiency. Mitral Valve Mitral valve leaflets are poorly visualized, there is no obvious mitral valve prolapse. There is trace mitral regurgitation. Tricuspid Valve Tricuspid valve is grossly normal, there is trace tricuspid regurgitation, tricuspid regurgitation jet velocity is inadequate for calculation of the right ventricular systolic pressure. Pulmonic Valve Pulmonic valve is poorly visualized. Great Vessels Aortic root is normal size. Inferior vena cava normal size with normal inspiratory collapse. Pericardium No significant pericardial effusion noted. Conclusion 1. Mild biatrial enlargement, normal left ventricular size, mild concentric left ventricular hypertrophy, visually estimated ejection fraction 55% with no regional wall motion abnormality, grade 1 diastolic dysfunction seen without tissue Doppler evidence of raise left atrial pressure. 2. Mildly enlarged right ventricle with normal contractility. 3. Trace mitral and tricuspid regurgitation. 4. No significant pericardial effusion noted. 5. Inferior vena cava is normal size with normal inspiratory collapse. Electronically signed by : Chu Parikh MD 10/07/2021 20:46:59
== END ==
LOC: RT 13:52
PROVIDERS: PCP Emergency Medicine; Visit Provider Emergency Medicine
DX: R00.0 Tachycardia, unspecified (principal); I34.1 Nonrheumatic mitral (valve) prolapse
CPT/HCPCS: 93306

== ENCOUNTER → 2021-10-23 10:04 | Outpatient (CLI) | payer BC, SELFPAY ==
[2021-10-23 13:50] LABS: Adenovirus,PCR Not Detected (NotDetected); Bordetella Pertussis Not Detected (NotDetected); Chlamydophila Pneumoniae, PCR Not Detected (NotDetected); Coronavirus 19, PCR Not Detected (NotDetected); Coronavirus 229E Not Detected (NotDetected); Coronavirus NL63 Not Detected (NotDetected); Coronavirus OC43 Not Detected (NotDetected); Coronovirus HKU1,PCR Not Detected (NotDetected); Human Metapneumovirus Not Detected (NotDetected); Influenza A, PCR Not Detected (NotDetected); Influenza AH1, 2009 Not Detected (NotDetected); Influenza AH1, PCR Not Detected (NotDetected); Influenza AH3,PCR Not Detected (NotDetected); Influenza B, PCR Not Detected (NotDetected); Mycoplasma Pneumoniae, PCR Not Detected (NotDetected); Parainfluenza 1, PCR Not Detected (NotDetected); Parainfluenza 2, PCR Not Detected (NotDetected); Parainfluenza 3, PCR Not Detected (NotDetected); Parainfluenza 4, PCR Not Detected (NotDetected); Respiratory Syncytial Virus Not Detected (NotDetected); Rhinovirus/Enterovirus Not Detected (NotDetected)
[2021-10-23 15:00] LABS: Amphetamine/Metha Screen,Urine Negative ng/ml (<1000)
[2021-10-23 15:01] LABS: Barbiturates Screen,Urine Negative ng/ml (<200); Benzodiazepines Screen,Urine Negative ng/ml (<200)
[2021-10-23 15:08] LABS: Cannabinoid Screen,Urine Negative ng/ml (<50)
[2021-10-23 15:09] LABS: Cocaine Screen,Urine Negative ng/ml (<300)
[2021-10-23 15:10] LABS: Methadone Screen,Urine Negative ng/ml (<300); Opiate Screen,Urine Negative ng/ml (<300)
[2021-10-23 15:11] LABS: Phencyclidine Screen,Urine Negative ng/ml (<25)
== END ==
PROVIDERS: PCP Emergency Medicine; Visit Provider Emergency Medicine
DX: G89.29 Other chronic pain (principal); R68.89 Other general symptoms and signs; Z11.52 Encounter for screening for COVID-19; J02.9 Acute pharyngitis, unspecified; R11.0 Nausea; R05.9 Cough, unspecified
CPT/HCPCS: 80305; 87581; 87632; 87798; C9803; U0003; U0005

== ENCOUNTER → 2021-12-21 08:06 | Outpatient (CLI) | payer BC, SELFPAY ==
[2021-12-20 17:46] LABS: Amphetamine/Metha Screen,Urine Negative ng/ml (<1000); Barbiturates Screen,Urine Negative ng/ml (<200)
[2021-12-20 17:47] LABS: Benzodiazepines Screen,Urine Negative ng/ml (<200)
[2021-12-20 17:48] LABS: Cocaine Screen,Urine Negative ng/ml (<300); Methadone Screen,Urine Negative ng/ml (<300)
[2021-12-20 17:49] LABS: Cannabinoid Screen,Urine Negative ng/ml (<50)
[2021-12-20 17:50] LABS: Opiate Screen,Urine Negative ng/ml (<300); Phencyclidine Screen,Urine Negative ng/ml (<25)
== END ==
PROVIDERS: PCP Emergency Medicine; Visit Provider Emergency Medicine
DX: Z79.899 Other long term (current) drug therapy (principal)
CPT/HCPCS: 80305

== ENCOUNTER → 2022-02-14 16:00 | Outpatient (CLI) | payer BC, SELFPAY ==
[2022-02-14 17:43] LABS: Amphetamine/Metha Screen,Urine Negative ng/ml (<1000); Barbiturates Screen,Urine Negative ng/ml (<200)
[2022-02-14 17:45] LABS: Benzodiazepines Screen,Urine Negative ng/ml (<200)
[2022-02-14 17:46] LABS: Cannabinoid Screen,Urine Negative ng/ml (<50)
[2022-02-14 17:47] LABS: Cocaine Screen,Urine Negative ng/ml (<300); Methadone Screen,Urine Negative ng/ml (<300)
[2022-02-14 17:48] LABS: Opiate Screen,Urine Negative ng/ml (<300); Phencyclidine Screen,Urine Negative ng/ml (<25)
== END ==
PROVIDERS: PCP Emergency Medicine; Visit Provider Emergency Medicine
DX: M54.50 Low back pain, unspecified (principal)
CPT/HCPCS: 80305

== ENCOUNTER → 2022-03-14 14:37 | Outpatient (CLI) | payer BC, SELFPAY ==
[2022-03-14 14:46] LABS: Microscopic, Urine URINE MICROSCOPIC (MICROSCOPIC)
[2022-03-14 15:36] LABS: Basophils % 0.7 % (0.1-2.0); Eosinophils # 0.1 K/mm3 (0.0-0.4); Eosinophils % 1.4 % (0.1-12.0); Hematocrit 37.7 % (37.0-47.0); Hemoglobin 11.3 g/dL (12.2-16.2); Lymphocytes # 2.5 K/mm3 (0.7-4.5); Lymphocytes % 47.4 % (10-50); Mean Corpuscular HGB Conc 29.9 g/dL (31.8-35.4); Mean Corpuscular Hemoglobin 27.2 pg (27.0-31.2); Mean Platelet Volume 8.2 fl (7.4-10.4); Monocytes # 0.3 K/mm3 (0.1-1.0); Neutrophils # 2.3 K/mm3 (1.8-7.8); Neutrophils % 44.4 % (37.0-80.0); Platelet Count 256 K/mm3 (142-424); Red Blood Count 4.14 M/mm3 (4.20-5.40); Red Cell Distribution Width 13.6 % (11.5-17.5); White Blood Count 5.3 K/mm3 (4.8-10.8)
[2022-03-14 16:12] LABS: Microalbumin/Creatinine Ratio 35.2
[2022-03-14 16:15] LABS: Creatinine,Urine Random 215 mg/dL (Not Estab.)
[2022-03-14 17:15] LABS: Albumin Level 4.5 g/dl (3.5-5.0); Anion Gap 12.2 mEq/L (5-15); Blood Urea Nitrogen 17 mg/dl (7-17); Calcium 10.1 mg/dl (8.4-10.2); Carbon Dioxide 28 mmol/L (22.0-30.0); Chloride 106 mmol/L (98-107); Estimated Glomerular Filt Rate 66 ml/min (>60); GFR (African American) 80 ML/MIN (>60); Glucose 145 mg/dl (74-100); Phosphorous 3.6 mg/dl (2.5-4.5); Potassium 4.2 mmoL/L (3.5-5.1); Sodium 142 mmol/L (136-145)
[2022-03-14 17:26] LABS: Intact Parathyroid Hormone 24.9 pg/mL (7.5-53.5)
[2022-03-14 17:29] LABS: 25-OH Vitamin D, Total 48.4 ng/mL (30-100)
[2022-03-14 17:46] LABS: Appearance,Urine SL CLOUDY (Clear); Bilirubin,Urine Negative (Negative); Blood, Urine TRACE-I (Negative); Color,Urine YELLOW (Yellow); Glucose,Urine (UA) Negative (Negative); Ketones,Urine Negative (Negative); Leukocyte Esterase,Urine 1+ (Negative); Nitrate,Urine Negative (Negative); Protein,Urine Negative (Negative); Specific Gravity, Urine >= 1.030 (1.005-1.030); Urobilinogen,Urine 0.2 EU/dl (0.2)
[2022-03-14 19:00] LABS: Bacteria,Urine 4+ /lpf; RBC,Urine Occasional #/hpf (0-3)
== END ==
PROVIDERS: PCP Emergency Medicine; Visit Provider Internal Medicine Nephrology
DX: R80.9 Proteinuria, unspecified (principal); E55.9 Vitamin D deficiency, unspecified
CPT/HCPCS: 36415; 80069; 81001; 82043; 82306; 82570; 83970; 84155; 85025; 87086; 87088; 87186

== ENCOUNTER → 2022-03-17 13:35 | Outpatient (POV) | payer BC, SELFPAY | PROVIDERS: Visit Provider Internal Medicine Nephrology | DX: Z00.00 Encounter for general adult medical examination without abnormal findings (principal) ==

== ENCOUNTER → 2022-04-14 09:40 | Outpatient (CLI) | payer BC, SELFPAY ==
[2022-04-14 14:59] LABS: Amphetamine/Metha Screen,Urine Negative ng/ml (<1000); Barbiturates Screen,Urine Negative ng/ml (<200)
[2022-04-14 15:00] LABS: Benzodiazepines Screen,Urine Negative ng/ml (<200)
[2022-04-14 15:01] LABS: Cannabinoid Screen,Urine Negative ng/ml (<50); Cocaine Screen,Urine Negative ng/ml (<300)
[2022-04-14 15:02] LABS: Methadone Screen,Urine Negative ng/ml (<300); Opiate Screen,Urine Negative ng/ml (<300)
[2022-04-14 15:03] LABS: Phencyclidine Screen,Urine Negative ng/ml (<25)
== END ==
PROVIDERS: PCP Emergency Medicine; Visit Provider Emergency Medicine
DX: Z79.899 Other long term (current) drug therapy (principal)
CPT/HCPCS: 80305

== ENCOUNTER → 2022-06-11 14:03 | Outpatient (CLI) | payer BC, SELFPAY ==
[2022-06-11 14:53] LABS: Amphetamine/Metha Screen,Urine Negative ng/ml (<1000)
[2022-06-11 14:54] LABS: Barbiturates Screen,Urine Negative ng/ml (<200); Benzodiazepines Screen,Urine Negative ng/ml (<200)
[2022-06-11 14:55] LABS: Cannabinoid Screen,Urine Negative ng/ml (<50); Cocaine Screen,Urine Negative ng/ml (<300)
[2022-06-11 14:56] LABS: Methadone Screen,Urine Negative ng/ml (<300)
[2022-06-11 14:57] LABS: Opiate Screen,Urine Positive ng/ml (<300)
[2022-06-11 14:58] LABS: Phencyclidine Screen,Urine Negative ng/ml (<25)
== END ==
PROVIDERS: PCP Emergency Medicine; Visit Provider Emergency Medicine
DX: Z79.899 Other long term (current) drug therapy (principal)
CPT/HCPCS: 80305

== ENCOUNTER → 2022-08-08 13:48 | Outpatient (CLI) | payer BC, SELFPAY ==
[2022-08-08 19:17] LABS: Amphetamine/Metha Screen,Urine Negative ng/ml (<1000); Barbiturates Screen,Urine Negative ng/ml (<200)
[2022-08-08 19:18] LABS: Benzodiazepines Screen,Urine Negative ng/ml (<200)
[2022-08-08 19:19] LABS: Cannabinoid Screen,Urine Negative ng/ml (<50); Cocaine Screen,Urine Negative ng/ml (<300)
[2022-08-08 19:20] LABS: Methadone Screen,Urine Negative ng/ml (<300)
[2022-08-08 19:21] LABS: Opiate Screen,Urine Negative ng/ml (<300); Phencyclidine Screen,Urine Negative ng/ml (<25)
== END ==
PROVIDERS: PCP Emergency Medicine; Visit Provider Emergency Medicine
DX: G89.29 Other chronic pain (principal); Z79.899 Other long term (current) drug therapy
CPT/HCPCS: 80305

== ENCOUNTER → 2022-10-01 10:00 | Outpatient (CLI) | payer BC, SELFPAY ==
[2022-10-01 16:52] LABS: Amphetamine/Metha Screen,Urine Negative ng/ml (<1000); Barbiturates Screen,Urine Negative ng/ml (<200); Benzodiazepines Screen,Urine Negative ng/ml (<200); Cannabinoid Screen,Urine Negative ng/ml (<50); Cocaine Screen,Urine Negative ng/ml (<300); Methadone Screen,Urine Negative ng/ml (<300); Opiate Screen,Urine Positive ng/ml (<300); Phencyclidine Screen,Urine Negative ng/ml (<25)
== END ==
PROVIDERS: PCP Emergency Medicine; Visit Provider Emergency Medicine
DX: Z79.899 Other long term (current) drug therapy (principal)
CPT/HCPCS: 80305

== ENCOUNTER → 2023-03-25 11:20 | Outpatient (CLI) | payer BC, SELFPAY ==
[2023-03-25 19:25] LABS: Basophils % 0.4 % (0.1-2.0); Eosinophils % 1.8 % (0.1-12.0); Hemoglobin 13.3 g/dL (12.2-16.2); Lymphocytes # 1.7 K/mm3 (0.7-4.5); Lymphocytes % 22.2 % (10-50); Mean Corpuscular HGB Conc 31.8 g/dL (31.8-35.4); Mean Corpuscular Hemoglobin 28.6 pg (27.0-31.2); Mean Platelet Volume 9.9 fl (7.4-10.4); Monocytes # 0.4 K/mm3 (0.1-1.0); Monocytes % 5.6 % (1.7-9.3); Neutrophils # 5.2 K/mm3 (1.8-7.8); Platelet Count 287 K/mm3 (142-424); Red Blood Count 4.67 M/mm3 (4.20-5.40); Red Cell Distribution Width 13.6 % (11.5-17.5); White Blood Count 7.5 K/mm3 (4.8-10.8)
[2023-03-25 19:26] LABS: Eosinophils # 0.1 K/mm3 (0.0-0.4)
[2023-03-25 19:32] LABS: Alanine Aminotransferase 31 U/L (12-78); Albumin Level 5.2 g/dl (3.5-5.0); Albumin/Globulin Ratio 1.1 (1.1-1.8); Alkaline Phosphatase 81 U/L (38-126); Anion Gap 16.3 mEq/L (5-15); Aspartate Amino Transferase 43 U/L (14-36); Bilirubin,Total 0.3 mg/dl (0.2-1.3); Blood Urea Nitrogen 8 mg/dl (7-17); Calcium 10.3 mg/dl (8.4-10.2); Carbon Dioxide 28 mmol/L (22.0-30.0); Chloride 103 mmol/L (98-107); Chol/HDL Ratio 4.2 (1-3.5); Cholesterol 221 mg/dl (140-200); Estimated Glomerular Filt Rate 76 ml/min (>60); GFR (African American) 92 ML/MIN (>60); Globulin 4.8 g/dL (1.3-3.2); Glucose 120 mg/dl (74-100); HDL Cholesterol 53 mg/dl (40-60); Potassium 3.3 mmoL/L (3.5-5.1); Sodium 144 mmol/L (136-145); Triglycerides 127 mg/dl (30-150); VLDL Cholesterol 25 mg/dL (0-40)
[2023-03-25 19:46] LABS: Direct LDL Cholesterol 126.28 mg/dL (100-129)
[2023-03-25 19:50] LABS: T4 (Thyroxine) 11.1 ug/dl (5.53-11.0)
[2023-03-25 19:52] LABS: Hemoglobin A1C 6.2 % (4.0-6.0)
[2023-03-25 20:03] LABS: Thyroid Stimulating Hormone 5.29 uIU/mL (0.465-4.68)
[2023-03-25 20:26] LABS: Amphetamine/Metha Screen,Urine Negative ng/ml (<1000); Barbiturates Screen,Urine Negative ng/ml (<200)
[2023-03-25 20:28] LABS: Benzodiazepines Screen,Urine Negative ng/ml (<200)
[2023-03-25 20:29] LABS: Cannabinoid Screen,Urine Negative ng/ml (<50); Cocaine Screen,Urine Negative ng/ml (<300)
[2023-03-25 20:30] LABS: Methadone Screen,Urine Negative ng/ml (<300)
[2023-03-25 20:31] LABS: Opiate Screen,Urine Negative ng/ml (<300); Phencyclidine Screen,Urine Negative ng/ml (<25)
== END ==
PROVIDERS: PCP Emergency Medicine; Visit Provider Emergency Medicine
DX: M79.7 Fibromyalgia (principal); E66.9 Obesity, unspecified; E11.9 Type 2 diabetes mellitus without complications; Z79.84 Long term (current) use of oral hypoglycemic drugs; Z68.35 Body mass index [BMI] 35.0-35.9, adult; Z79.899 Other long term (current) drug therapy
CPT/HCPCS: 80050; 80053; 80061; 80305; 82306; 83036; 84436; 84443; 85025

== ENCOUNTER → 2023-04-06 13:50 | Outpatient (CLI) | payer BC, SELFPAY ==
[2023-04-06 13:56] LABS: Microscopic, Urine URINE MICROSCOPIC (MICROSCOPIC)
[2023-04-06 14:24] LABS: Hematocrit 39.1 % (37.0-47.0); Hemoglobin 13.1 g/dL (12.2-16.2); Mean Corpuscular HGB Conc 33.6 g/dL (31.8-35.4); Mean Corpuscular Volume 86.3 fl (81-99); Platelet Count 256 K/mm3 (142-424); Red Blood Count 4.53 M/mm3 (4.20-5.40); Red Cell Distribution Width 13.6 % (11.5-17.5); White Blood Count 7.2 K/mm3 (4.8-10.8)
[2023-04-06 14:41] LABS: Appearance,Urine SL CLOUDY (Clear); Bilirubin,Urine Negative (Negative); Blood, Urine Negative (Negative); Color,Urine YELLOW (Yellow); Glucose,Urine (UA) TRACE (Negative); Ketones,Urine Negative (Negative); Leukocyte Esterase,Urine 1+ (Negative); Nitrate,Urine POSITIVE (Negative); Protein,Urine Negative (Negative); Specific Gravity, Urine >= 1.030 (1.005-1.030); Urobilinogen,Urine 0.2 EU/dl (0.2)
[2023-04-06 15:21] LABS: Creatinine,Urine Random 174 mg/dL (Not Estab.)
[2023-04-06 15:30] LABS: Bacteria,Urine 4+ /lpf; Squamous Epithelial Cell,Urine Occasional #/hpf (0-5)
[2023-04-06 15:48] LABS: Albumin Level 4.7 g/dl (3.5-5.0); Blood Urea Nitrogen 15 mg/dl (7-17); Calcium 10.1 mg/dl (8.4-10.2); Carbon Dioxide 31 mmol/L (22.0-30.0); Chloride 98 mmol/L (98-107); Estimated Glomerular Filt Rate 66 ml/min (>60); GFR (African American) 80 ML/MIN (>60); Glucose 91 mg/dl (74-100); Phosphorous 3.6 mg/dl (2.5-4.5); Sodium 139 mmol/L (136-145)
[2023-04-06 16:00] LABS: Intact Parathyroid Hormone 34.2 pg/mL (7.5-53.5)
[2023-04-06 16:05] LABS: 25-OH Vitamin D, Total 39.1 ng/mL (30-100)
== END ==
PROVIDERS: PCP Emergency Medicine; Visit Provider Internal Medicine Nephrology
DX: R80.9 Proteinuria, unspecified (principal); E55.9 Vitamin D deficiency, unspecified; R82.90 Unspecified abnormal findings in urine
CPT/HCPCS: 36415; 80069; 81001; 82306; 82570; 83970; 84155; 85014; 85018; 85048; 85049; 87086

== ENCOUNTER → 2023-04-09 14:54 | Outpatient (POV) | payer BC, SELFPAY | PROVIDERS: Visit Provider Internal Medicine Nephrology | DX: Z00.00 Encounter for general adult medical examination without abnormal findings (principal) ==

== ENCOUNTER 2023-08-03 21:19 | Outpatient (CLI) | payer BC, SELFPAY ==
[2023-08-03 19:59] LABS: Free Thyroxine Index 2.8 ug/dL (5.93-13.13); T4 (Thyroxine) 9.4 ug/dl (5.53-11.0); Triiodothryronine (T3) Uptake 30 % (23.5-40.5)
[2023-08-03 20:12] LABS: Thyroid Stimulating Hormone 2.74 uIU/mL (0.465-4.68)
== END 2023-08-03 23:59 ==
LOC: LAB.DROPOF 21:19
PROVIDERS: PCP Family Medicine; Visit Provider Family Medicine
DX: M79.7 Fibromyalgia (principal)
CPT/HCPCS: 84436; 84443; 84479

== ENCOUNTER 2023-09-17 20:32 | Outpatient (CLI) | payer BC, SELFPAY ==
[2023-09-17 20:14] LABS: Microalbumin/Creatinine Ratio 16.6
[2023-09-17 20:16] LABS: Creatinine,Urine Random 111 mg/dL (Not Estab.)
== END 2023-09-17 23:59 ==
LOC: LAB.DROPOF 20:32
PROVIDERS: PCP Internal Medicine; Visit Provider Internal Medicine
DX: E11.9 Type 2 diabetes mellitus without complications (principal); Z79.84 Long term (current) use of oral hypoglycemic drugs
CPT/HCPCS: 82043; 82570

== ENCOUNTER 2023-11-11 11:14 | Outpatient (CLI) | payer BC, SELFPAY ==
[2023-11-11 19:08] LABS: Basophils # 0.1 K/mm3 (0-0.2); Basophils % 0.8 % (0.1-2.0); Eosinophils # 0.1 K/mm3 (0.0-0.4); Eosinophils % 1.3 % (0.1-12.0); Hematocrit 38.5 % (37.0-47.0); Hemoglobin 12.6 g/dL (12.2-16.2); Lymphocytes # 2.1 K/mm3 (0.7-4.5); Lymphocytes % 34.4 % (10-50); Mean Corpuscular HGB Conc 32.7 g/dL (31.8-35.4); Mean Corpuscular Hemoglobin 29.9 pg (27.0-31.2); Mean Corpuscular Volume 91.5 fl (81-99); Mean Platelet Volume 9.5 fl (7.4-10.4); Monocytes # 0.4 K/mm3 (0.1-1.0); Neutrophils # 3.5 K/mm3 (1.8-7.8); Neutrophils % 57.5 % (37.0-80.0); Platelet Count 286 K/mm3 (142-424); Red Blood Count 4.21 M/mm3 (4.20-5.40); Red Cell Distribution Width 14.8 % (11.5-17.5)
[2023-11-11 19:41] LABS: Alanine Aminotransferase 26 U/L (12-78); Albumin Level 4.7 g/dl (3.5-5.0); Albumin/Globulin Ratio 1.4 (1.1-1.8); Alkaline Phosphatase 59 U/L (38-126); Aspartate Amino Transferase 40 U/L (14-36); Bilirubin,Total 0.4 mg/dl (0.2-1.3); Blood Urea Nitrogen 11 mg/dl (7-17); Calcium 10.4 mg/dl (8.4-10.2); Carbon Dioxide 27 mmol/L (22.0-30.0); Chloride 103 mmol/L (98-107); Chol/HDL Ratio 4.2 (1-3.5); Cholesterol 214 mg/dl (140-200); Estimated Glomerular Filt Rate 75 ml/min (>60); GFR (African American) 91 ML/MIN (>60); Globulin 3.4 g/dL (1.3-3.2); Glucose 105 mg/dl (74-100); HDL Cholesterol 51 mg/dl (40-60); Sodium 143 mmol/L (136-145); Total Protein,Serum 8.1 g/dl (6.3-8.2); Triglycerides 149 mg/dl (30-150); VLDL Cholesterol 30 mg/dL (0-40)
[2023-11-11 19:52] LABS: 25-OH Vitamin D, Total 23.8 ng/mL (30-100)
[2023-11-11 19:54] LABS: Direct LDL Cholesterol 134.77 mg/dL (100-129)
[2023-11-11 20:05] LABS: Thyroid Stimulating Hormone 2.27 uIU/mL (0.465-4.68)
[2023-11-11 22:26] LABS: Hemoglobin A1C 6.3 % (4.0-6.0)
== END 2023-11-11 23:59 | disposition home or self-care (01) ==
PROVIDERS: PCP Internal Medicine; Visit Provider Internal Medicine
DX: R53.83 Other fatigue (principal); E55.9 Vitamin D deficiency, unspecified; Z68.34 Body mass index [BMI] 34.0-34.9, adult
CPT/HCPCS: 80053; 80061; 82306; 83036; 84443; 85025

== ENCOUNTER 2023-11-16 11:00 | Outpatient (CLI) | payer BC, SELFPAY ==
--- NOTE | 2023-11-16 | CA_ITS ---
APPROVED REPORT Exam: Pharmacologic Technologist: Beata Mtz, Ht: 5 ft 4 in Wt: 196 lbs BSA: 1.94 m2 HR: 90 bpm BP: 157/98 mmHg Rhythm: SR, PVC Medical History Medical History: HTN, Hyperlipidemia, Diabetic Medications: Lisinopril,,,,, Levothyroxine,,,,, Aspirin,,,,, Metformin,,,,, Flonase,,,,, Estradiol,,,,, FeNOfibrate,,,,, LoraTADINE,,,,, OxYCODONE,,,,, Pregabalin,,,,, Ezetimibe,,,,, SeMaglutide,,,,, Allergies: ATORVASTATIN, CHLORPHENIRAMINE, METOPROLOL, PHENYLEPHRINE, STATINS HMG COA Cardiac Risk Factors: HTN, Hyperlipidemia, Diabetes, FHX of CAD Stress Test Details Test: LEXISCAN HR Resting HR: 88 bpm Max Heart Rate (APMHR): 168 bpm Max HR Achieved: 127 bpm Target HR (85% APMHR): 143 bpm % of APMHR: 76 Recovery HR: 88 bpm BP Resting BP: 157/98 mmHg Max BP: 176/114 mmHg Recovery BP: 132.0/88.0 mmHg ECG Resting ECG: SR, PVC Stress ECG: No significant ST changes Arrhythmia: PVCs Clinical Exercise duration: 04:04 min Highest Stage Achieved: Stress ECG Conclusion The patient had no symptoms. Ectopy: PVCs ST changes: None Conclusion: Unremarkable Lexiscan stress test. Myoview images reported separately. Test Summary REST 01:42 . . 88 . 157/ 98 . . Stage 1 01:00 . . 115 . . . . Stage 2 01:00 . . 112 . 176/114 . . Stage 3 01:00 . . 114 . 163/ 89 . . Stage 4 01:00 . . 103 . 143/ 94 . . Stage 4 01:04 . . 97 . 143/ 94 . Stop exercise at 04:04 RECOVERY 01:00 . . 100 . 141/ 85 . . RECOVERY 02:00 . . 95 . 158/ 99 . . RECOVERY 03:00 . . 85 . 132/ 88 . . RECOVERY 03:08 . . 88 . 132/ 88 . . Electronically signed by : Sadaf Corea MD 11/17/2023 13:02:25
--- NOTE | 2023-11-16 | CA_ITS ---
APPROVED REPORT EXAM: Comprehensive 2D, Doppler, and color-flow Echocardiogram Behavioral Therapy Coordinator: Kamila Arzola CRT Ht: 5 ft 4 in Wt: 198lbs BSA: 1.95 BP: 162/100 mmHg Indications: Chest Pain, Diabetes, Palpitations, Hyperlipidemia, Hypertension/HDD 2D Dimensions LA Volume 34.20 mL LA Volume Index 17.20 mL/m2 (M/F) 16-34 M-Mode Dimensions RVDd 2.86 cm (0.9-2.6) LA Diam 3.19 cm (1.9-4.0) LVDd 4.01 cm (3.5-5.7) LVDs 2.47 cm (3.5-5.7) IVSd 1.61 cm (0.6-1.1) PWd 1.07 cm (0.6-1.1) EF (Teich) 69.20% FS 38.40% EDV (Teich) 70.40 mL TAPSE 2.34 (<1.7) ESV (Teich) 21.70 mL LV Diastology E Decel Time 197 (160-240 msec) E/A Ratio 1.29 MED A' 12.50 cm/s LAT A' 12.40 cm/s Aortic Valve AO Peak GR. 5.70 mmHg Mitral Valve MV E Max Michael. 89.0 (40-130 cm/s) MV A Velocity 69.0 (40-130 cm/s) E/A Ratio 1.29 MV PHT 58.0 ms Pulmonary Valve PV Peak Velocity 110.0 (50-150 cm/s) Tricuspid Valve TR P. Velocity 186.00 cm/s RAP Estimate 10.00 mmHg RVSP 23.90 mmHg Left Ventricle The left ventricle is normal size. The left ventricular systolic function is normal. The left ventricular ejection fraction is within the normal range. There is normal left ventricular wall thickness. There is normal LV segmental wall motion. The left ventricular diastolic function is normal. LVEF is 55%. Right Ventricle The right ventricle is normal size. The right ventricular systolic function is normal. Atria The left atrium size is normal. The right atrium size is normal. There is no Doppler evidence of interatrial shunt. Aortic Valve The aortic valve opens well. There is no aortic valvular stenosis. Trace aortic regurgitation. Mitral Valve The mitral valve is normal in structure. No evidence of mitral valve stenosis. There is no mitral valve regurgitation noted. Tricuspid Valve The tricuspid valve leaflets are thin and pliable. Trace tricuspid regurgitation. There is insufficient TR jet to estimate RVSP. Pulmonic Valve The pulmonary valve is normal in structure. Trace pulmonic regurgitation. Great Vessels The aortic root is normal in size. The ascending aorta is normal in size. IVC is normal in size and collapses >50% with inspiration. Pericardium There is no pericardial effusion. Other Information Study Quality: Fair Conclusion Normal biventricular systolic function. No significant valvular stenosis or regurgitation. Electronically signed by : Sadaf Corea MD 11/18/2023 10:30:38
--- NOTE | 2023-11-16 11:44 | NM_ITS ---
APPROVED REPORT Exam: Nuclear Stress Test Indication: VALVULAR DISEASE, HTN,M DM , HYPERLIPIDEMIA, ANGINA, PALPITATIONS Patient Location: Outpatient Stress Tech: Beata Mtz MA Tech:Summer Wise, ARRT, RT (R)(N) Ht: 5 ft 4 in Wt: 198 lbs Bra Size: D HR: 88 bpm BP: 157/98 mmHg BSA: 1.95 m2 TID: 1.24 BMI: 33.9 History: VALVULAR DISEASE, HTN,M DM , HYPERLIPIDEMIA, ANGINA, PALPITATIONS Procedure: Patient received 0.4 mg of intravenous Lexiscan, resting heart rate 88 bpm, resting blood pressure 157/98 mmHg, with Lexiscan maximum heart rate achieved was 127 bpm which is % of the maximum predicted heart rate and blood pressure was 176/114 mmHg. With Lexiscan, patient denied any complaint of chest pain. Cardiac Stress and Resting SPECT Images: Cardiac Stress and Resting SPECT images were obtained using technetium 99m Myoview 31.6 mCi stress and 10.74 mCi at rest. Resting and stress imaging in supine and prone positions demonstrate no evidence of fixed or reversible perfusion defects. There is increased transient ischemic dilatation ratio (TID 1.24), suggestive of possible multivessel disease or balanced ischemia. Gated imaging demonstrates normal global and regional LV systolic function. LVEF is calculated at 68%. Conclusion: No evidence of fixed or reversible perfusion defects. There is increased transient ischemic dilatation ratio (TID 1.24), suggestive of possible multivessel disease or balanced ischemia. Gated imaging demonstrates normal global and regional LV systolic function. LVEF is calculated at 68%. In the setting of young age and normal LVEF, further evaluation noninvasively (i.e. CCTA) to rule out multivessel disease is recommended prior to proceeding with invasive coronary angiography. Electronically signed by : Sadaf Corea MD 11/17/2023 13:03:49
[2023-11-16] MEDS: REGADENOSON 0.4MG/5ML SYRINGE 0.400000000000000022 MG IV (13:47)
[2023-11-16] MEDS: SODIUM CHLORIDE 0.9% 10ML SYR (RAD ONLY) 10 ML IV ×2 (13:47→13:48)
[2023-11-16] MEDS: ISOTOPE MYOVIEW (PER STUDY) 1 DOSE IV (13:48)
== END 2023-11-16 23:59 | disposition home or self-care (01) ==
LOC: RT 11:01
PROVIDERS: PCP Internal Medicine; Visit Provider Physician Assistant
DX: I20.89 Other forms of angina pectoris (principal); I51.89 Other ill-defined heart diseases; R60.9 Edema, unspecified; R53.83 Other fatigue; E11.9 Type 2 diabetes mellitus without complications; E66.9 Obesity, unspecified; Z68.34 Body mass index [BMI] 34.0-34.9, adult; Z79.84 Long term (current) use of oral hypoglycemic drugs
CPT/HCPCS: 78452; 93017; 93018; 93306; A9502; J2785

== ENCOUNTER 2023-11-24 08:41 | Outpatient (CLI) | payer BC, SELFPAY ==
[2023-11-24 09:17] VITALS: BP 134/86; PULSE 67; RESP 18; TEMP 36.7; O2SAT 100; BMI 34.0
[2023-11-24] MEDS: IVABRADINE HCL 7.5MG TABLET *IVABRADINE+METOPROLOL REGIMINE 15 MG PO (09:29)
[2023-11-24] MEDS: METOPROLOL TARTRATE 50MG TABLET *IVABRADINE+METOPROLOL REGIMINE 50 MG PO (09:30)
--- NOTE | 2023-11-24 09:33 | PC.NURSE ---
REVIEWED ALLERGIES WITH PT AND METOPROLOL WAS LISTED. PT DENIES ALLERGY TO METOPROLOL AND TAKES AT HOME. ASKED THIS RN TO REMOVE METOPROLOL FROM ALLERGY LIST. ALSO EXPLAINED HOW IMPORTANT THIS IS WE WILL NEED TO GIVE HER METOPROLOL FOR THE CCTAS, VERBALIZED UNDERSTANDING ANS WAS SURE THAT SHE DID NOT HAVE AN ALLERGY TO METOPROLOL.
--- NOTE | 2023-11-24 09:45 | PC.NURSE ---
REC'D CALL FROM HR SPECIALIST SAYING THAT CT SCANNER WAS DOWN AND SCAN WOULD NEED TO BE RESCHEDULED. NOTIFIED Carol Ann JACKSON RN AND SHE NOTIFIED Verónica YEN IN CARDIOLOGY TO INFORM OF SITUATION AND THAT METOPROLOL 50MG AND IVABRADINE 15MG PO HAD ALREADY BEEN GIVEN IN PREPARATION OF THE SCAN. PROVIDER SAID OK FOR PT TO GO HOME, DRINK PLENTY OF FLUIDS. CCTA TO BE RESCHEDULED.
[2023-11-24 10:00] VITALS: BP 128/83; PULSE 61; RESP 18; O2SAT 98
--- NOTE | 2023-11-24 10:00 | PC.NURSE ---
PT INFORMED OF ISSUES WITH CT SCANNER. PT DISAPPOINTED BUT VERY UNDERSTANDING AND KIND. IV D/C'D AND INSTRUCTED TO DRINK PLENTY OF FLUIDS TODAY AND TO RETURN TO ER IF EXPERIENCE SEVERE DIZZINESS OR FAINTING, VERBALIZED UNDERSTANDING. PT AMBULATED OUT WITH .
== END 2023-11-24 10:00 | disposition home or self-care (01) ==
PROVIDERS: PCP Internal Medicine; Visit Provider Physician Assistant
DX: I20.89 Other forms of angina pectoris (principal); R94.39 Abnormal result of other cardiovascular function study; E11.9 Type 2 diabetes mellitus without complications; Z79.84 Long term (current) use of oral hypoglycemic drugs

== ENCOUNTER 2023-12-21 07:49 | Outpatient (CLI) | payer BC, SELFPAY ==
--- NOTE | 2023-12-21 07:49 | CT_ITS ---
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 A noncontrast coronary calcium scan was performed. A CT attenuation threshold of 130 Hounsfield units (HU) was used for the detection of calcium in contiguous voxels of 1 sq mm in area to be counted as individual lesions. Bolus tracking in the ascending aorta with a threshold of 180 HU was performed. Immediately afterwards, ECG synchronized cardiac CT was then performed from the cardiac base to apex using retrospective gating with ECG tube current modulation. A total of 85 mL of Isovue 370 mg/mL contrast medium was administered at 5 mL/sec followed by a saline flush using a biphasic injection protocol. A tube voltage of 120 KVp was used. The patient received the following medications prior to the cardiac CT. 75 mg of oral metoprolol 15 mg of oral ivabradine 0.8 mg of sublingual nitroglycerin The average heart rate at the time of acquisition was 59 bpm and regular. Image Reconstruction Transaxial images were reconstructed at 0.67 mm slide thickness. Data was reviewed interactively on an advanced workstation capable of 2 and 3-dimensional displays in all conventional reconstruction formats, including multiplanar reformations, maximum intensity projections, curved multiplanar reformations, and volume rendered reconstructions. When applicable, selected routine images describing the relevant coronary anatomy and pathology were saved and sent to PACS. Complications None Technical Quality Overall image quality was good. Coronary artery opacification was adequate. Total DLP (Dose-Length Product) is 1417.2 mGy-cm. The reported value represents the total of one or more individual components during the CT acquisition of this date and at this time, and as such, the same value may appear in more than one CT report depending on the interpreting/reporting physicians. COMPARISON None FINDINGS CT Coronary Calcium Scoring LMA (Left Main Artery) = 0 LAD (Left Anterior Descending) = 3 LCX (Left Coronary Circumflex) = 0 RCA (Right Coronary Artery) = 0 Total Calcium Score = 3 using the AJ-130 method. The observed calcium score of 3 is at 83rd percentile for subjects of the same age, sex, and race/ethnicity. The interpretation of the calcium heart score is based on the following continuum*: 0 = no calcified plaque detected (risk of coronary artery disease is very low ??? less than 5%) 1-10 = calcium detected in extremely minimal levels (risk of coronary diseases is still low ??? less than 10%) 11-100 = mild levels of plaque detected with certainty (mild or minimal narrowing of heart arteries is likely) 101-400 = definite,at least moderate levels of plaque detected (relatively high risk of a heart attack within 3-5 years) >401-999 = extensive levels of plaque detected (high risk of heart attack, high levels of vascular disease are present, high likelihood of at least one significant coronary narrowing) *The calcium heart score quantifies the burden of coronary calcification/plaque in the coronary arteries. The calcium heart score is not able to evaluate the presence or burden of non-calcified (i.e. soft) plaque. There is no identifiable calcification in the aortic valve, mitral annulus or mitral valve, pericardium, or myocardium. Coronary CT Angiography The coronary arterial system is right dominant. Quantitative Stenosis Grading: Left Main (LM): The left main originates normally from the left sinus of Valsalva. The LM bifurcates into the left anterior descending artery and left circumflex artery. The LM is patent with no evidence of atherosclerosis. Left Anterior Descending (LAD) and Diagonal Branches: The LAD gives off 2 diagonal branch(es). There is one focus of calcification in the mid LAD segment, with no luminal stenosis. There is no evidence of LAD-myocardial bridge. Left Circumflex (LCX) and Obtuse Marginals (OM): The LCX gives off 1 Obtuse Marginal (OM) branch(es). The LCX and its branches are patent with no evidence of atherosclerosis. Right Coronary Artery (RCA): The RCA originates normally from the right sinus of Valsalva. The RCA gives off a posterior descending artery (PDA) and posterolateral (PL) branches. The RCA and its branches are patent with no evidence of atherosclerosis. Non-Coronary Cardiac Findings: Analysis of the left ventricular (LV) structure and function was performed after 3-D reconstruction of the LV from axial images, with user-corrected automatic contouring for assessment of LV volumes and user-defined reconstruction from oblique planes for measurement of 3-D cardiac structure and function. -The left ventricle systolic function is normal. -There is no left atrial appendage filling defect. Two right pulmonary veins and two left pulmonary veins drain normally into the left atrium. -No pericardial thickening or calcification. -Central and branch pulmonary arteries in the [id number] are unremarkable. -Thoracic aorta within the visualized thoracic aortic-branches in the [id number] is unremarkable. Extracardiac Structures No significant extra-cardiac findings. Note, however, that this study is focused on the cardiac findings. IMPRESSION -Presence of minimal coronary calcification with an Agatston score = 3 using the AJ-130 method. -The observed calcium score of 3 is at 83rd percentile for subjects of the same age, sex, and race/ethnicity. -No evidence of significant flow-limiting atherosclerosis of the coronary arteries. -No evidence of coronary anomalies or myocardial bridges. -CAD-RADS 1. Management recommendations per ACC/AHA guidelines*, as clinically appropriate. *Recommendations: CAD RADS 0: Reassurance. Consider non-atherosclerotic causes of chest pain. CAD RADS 1: Consider non-atherosclerotic causes of chest pain. Consider preventive therapy and risk factor modification. CAD RADS 2: Consider non-atherosclerotic causes of chest pain. Consider preventive therapy and risk factor modification, particularly for patients with nonobstructive plaque in multiple segments. CAD RADS 3: Consider further functional testing. Consider symptom-guided anti-ischemic and preventive pharmacotherapy as well as risk factor modification per published guideline statements. CAD RADS 4A: Consider further functional testing or invasive coronary angiography with revascularization per published guideline statements. Consider symptom-guided anti-ischemic and preventive pharmacotherapy as well as risk factor modification per published guideline statements. CAD RADS 4B: Invasive coronary angiography recommended with revascularization per published guideline statements. Consider symptom-guided anti-ischemic and preventive pharmacotherapy as well as risk factor modification per published guideline statements. CAD RADS 5: Consider invasive angiography and/or viability assessment with revascularization per published guideline statements. Consider symptom-guided anti-ischemic and preventive pharmacotherapy as well as risk factor modification per published guideline statements. CRITICAL RESULT None COMMUNICATION Per this written report The coronary and cardiac findings of this CCTA were reviewed, reported, and signed by Irving Corea MD ([place]) Conclusion Electronically signed by : Sadaf Corea MD 12/22/2023 13:15:24
[2023-12-21 08:08] VITALS: BMI 34.0
[2023-12-21 08:33] VITALS: BP 151/88; PULSE 83; RESP 16; O2SAT 100
[2023-12-21] MEDS: METOPROLOL TARTRATE 25MG TABLET *IVABRADINE+METOPROLOL REGIMINE 25 MG PO (08:33)
[2023-12-21] MEDS: IVABRADINE HCL 7.5MG TABLET *IVABRADINE+METOPROLOL REGIMINE 15 MG PO (08:33)
[2023-12-21] MEDS: METOPROLOL TARTRATE 50MG TABLET *IVABRADINE+METOPROLOL REGIMINE 50 MG PO (08:33)
[2023-12-21 08:42] LABS: Chloride 103 mmol/L (98-107); Sodium 141 mmol/L (136-145)
[2023-12-21 08:43] LABS: Potassium 3.8 mmoL/L (3.5-5.1)
[2023-12-21 08:45] LABS: Blood Urea Nitrogen 18 mg/dl (7-17)
[2023-12-21 08:46] LABS: Anion Gap 13.8 mEq/L (5-15); Calcium 9.9 mg/dl (8.4-10.2); Carbon Dioxide 28 mmol/L (22.0-30.0); Creatinine Clearance Estimated 104 mL/min (50-200); Estimated Glomerular Filt Rate 66 ml/min (>60); GFR (African American) 80 ML/MIN (>60); Glucose 106 mg/dl (74-100)
[2023-12-21 10:04] VITALS: BP 173/97; PULSE 59; RESP 16; O2SAT 100
[2023-12-21] MEDS: NITROGLYCERIN 0.4MG SL TABLET 0.8 MG SL (10:04)
[2023-12-21 10:07] VITALS: BP 158/87; PULSE 61; RESP 16; O2SAT 100
[2023-12-21 10:10] VITALS: BP 128/86; PULSE 63; RESP 16; O2SAT 100
[2023-12-21] MEDS: IOPAMIDOL-370 (76%);100ML BOTTLE 85 ML IV (10:16)
[2023-12-21] MEDS: SODIUM CHLORIDE 0.9% 10ML SYR (RAD ONLY) 10 ML IV (10:16)
[2023-12-21] MEDS: 0.9 % SODIUM CHLORIDE 50 ML VIAL IV (10:16)
[2023-12-21 10:21] VITALS: BP 111/65; PULSE 60; RESP 18; O2SAT 99
== END 2023-12-21 10:23 | disposition home or self-care (01) ==
PROVIDERS: PCP Internal Medicine; Visit Provider Physician Assistant
DX: I20.89 Other forms of angina pectoris (principal); R94.39 Abnormal result of other cardiovascular function study
CPT/HCPCS: 75574; 80048; Q9967

== ENCOUNTER 2024-02-09 15:07 | Outpatient (CLI) | payer BC, SELFPAY ==
--- NOTE | 2024-02-09 15:08 | MM_ITS ---
PROCEDURE INFORMATION: Exam: MG Bilateral Screening 3D Mammography Exam date and time: 02/09/2024 2:52 PM Age: 53 years old Clinical indication: Screening exam. TECHNIQUE: Imaging protocol: Bilateral Screening tomosynthesis and 2D mammography including computer-aided detection (CAD) when performed. COMPARISON: 1. MG MM DIG MAMM BI DX W/CAD 02/29/2020 1:55 PM 2. MG MM DIG MAMM BI DX W/CAD 08/23/2019 2:58 PM FINDINGS: MAMMOGRAPHY: Breast composition: There are scattered areas of fibroglandular density. Mass: No suspicious masses. Architectural distortion: None. Calcifications: No suspicious calcifications. Asymmetric density: None. Skin thickening: None. Axillary adenopathy: None. IMPRESSION: No mammographic evidence of malignancy. Annual screening is recommended unless otherwise clinically indicated. ASSESSMENT: BI-RADS Category 1: Negative
== END 2024-02-09 23:59 | disposition home or self-care (01) ==
LOC: RAD 15:08
PROVIDERS: PCP Internal Medicine; Visit Provider Obstetrics & Gynecology
DX: Z12.31 Encounter for screening mammogram for malignant neoplasm of breast (principal)
CPT/HCPCS: 77063; 77067

== ENCOUNTER 2024-04-26 10:46 | Outpatient (CLI) | payer BC, SELFPAY ==
[2024-04-26 19:04] LABS: Microalbumin/Creatinine Ratio 44.2
[2024-04-26 19:08] LABS: Creatinine,Urine Random 21 mg/dL (Not Estab.)
== END 2024-04-26 23:59 | disposition home or self-care (01) ==
LOC: LAB.DROPOF 04-27 10:47
PROVIDERS: PCP Internal Medicine; Visit Provider Internal Medicine
DX: N18.2 Chronic kidney disease, stage 2 (mild) (principal); I10 Essential (primary) hypertension
CPT/HCPCS: 82043; 82570

== ENCOUNTER 2024-07-25 11:47 | Outpatient (CLI) | payer OTHER, SELFPAY ==
[2024-07-25 18:10] LABS: Basophils % 0.4 % (0.1-2.0); Eosinophils # 0.1 K/mm3 (0.0-0.4); Eosinophils % 1.8 % (0.1-12.0); Hematocrit 38.8 % (37.0-47.0); Hemoglobin 12.7 g/dL (12.2-16.2); Lymphocytes # 1.7 K/mm3 (0.7-4.5); Lymphocytes % 31.1 % (10-50); Mean Corpuscular HGB Conc 32.7 g/dL (31.8-35.4); Mean Corpuscular Volume 88.6 fl (81-99); Mean Platelet Volume 12.1 fl (7.4-10.4); Monocytes # 0.4 K/mm3 (0.1-1.0); Monocytes % 7.4 % (1.7-9.3); Neutrophils # 3.2 K/mm3 (1.8-7.8); Neutrophils % 59.1 % (37.0-80.0); Platelet Count 314 K/mm3 (142-424); Red Blood Count 4.38 M/mm3 (4.20-5.40); Red Cell Distribution Width 12.8 % (11.5-17.5); White Blood Count 5.4 K/mm3 (4.8-10.8)
[2024-07-25 18:39] LABS: Alanine Aminotransferase 26 U/L (12-78); Albumin Level 5.2 g/dl (3.5-5.0); Albumin/Globulin Ratio 1.5 (1.1-1.8); Alkaline Phosphatase 43 U/L (38-126); Anion Gap 17.5 mEq/L (5-15); Aspartate Amino Transferase 36 U/L (14-36); Bilirubin,Total 0.3 mg/dl (0.2-1.3); Blood Urea Nitrogen 17 mg/dl (7-17); Calcium 10.8 mg/dl (8.4-10.2); Carbon Dioxide 25 mmol/L (22.0-30.0); Chloride 104 mmol/L (98-107); Cholesterol 192 mg/dl (140-200); Estimated Glomerular Filt Rate 75 ml/min (>60); GFR (African American) 91 ML/MIN (>60); Globulin 3.4 g/dL (1.3-3.2); Glucose 96 mg/dl (74-100); HDL Cholesterol 48 mg/dl (40-60); Potassium 4.5 mmoL/L (3.5-5.1); Sodium 142 mmol/L (136-145); Total Protein,Serum 8.6 g/dl (6.3-8.2); Triglycerides 128 mg/dl (30-150); VLDL Cholesterol 26 mg/dL (0-40)
[2024-07-25 18:49] LABS: Direct LDL Cholesterol 121.02 mg/dL (100-129)
[2024-07-25 20:13] LABS: Hemoglobin A1C 5.6 % (4.0-6.0)
[2024-07-25 20:48] LABS: Thyroid Stimulating Hormone 2.08 uIU/mL (0.465-4.68)
== END 2024-07-25 23:59 | disposition home or self-care (01) ==
LOC: LAB.DROPOF 07-26 08:08
PROVIDERS: PCP Internal Medicine; Visit Provider Internal Medicine
DX: E03.9 Hypothyroidism, unspecified (principal)
CPT/HCPCS: 80053; 80061; 83036; 84443; 85025

== ENCOUNTER 2025-02-22 12:54 | Outpatient (CLI) | payer OTHER, SELFPAY ==
--- OUTSIDE RECORDS SUMMARY | 2025-02-22 12:57 | XMS_ITS | Clinical Summary ---
Author Organization [facility] Address [address] [place] [address] Care Team Providers Care Parts Analyst Name Role Phone ArletteRoxanne Crystal GIRARD Primary Care Provider [phone] Allergies Active Allergy Reactions Criticality Noted Date Comments Atorvastatin Other - please docum ent in the comment field Low 11/05/2021 Muscle soreness Chlorpheniramine Rash Low 11/05/2021 Metoprolol Unknown - Patient st ates they do not know rxn details Low 06/11/2015 Phenylephrine Rash Low 11/05/2021 Pravastatin Unknown - Patient st ates they do not know rxn details Low 06/11/2015 Rosuvastatin Unknown - Patient st ates they do not know rxn details Low 06/11/2015 Medications oxyCODONE-aceta minophen (Percocet) 7.5-325 MG tablet TAKE 1 TABLET EVERY 6 HOURS. 5 Active aspirin 81 MG EC tablet Take 1 tablet (81 mg) by mouth 1 (one) time each day. Active esomeprazole (NexIUM) [address] capsule Take 1 capsule (20 mg) by mouth 1 (one) time each day before breakfast. Do not open capsule. Active ezetimibe (Zetia) 10 MG tablet Take 1 tablet (10 mg) by mouth 1 (one) time each day. Active fenofibrate (Triglide) 160 MG tablet Take 1 tablet (160 mg) by mouth 1 (one) time each day. Active fluticasone (Flonase) 50 MCG/ACT nasal spray Administer 1 spray into each nostril 1 (one) time each day. Shake gently. Before first use, prime pump. After use, clean tip and replace cap. Active hydroCHLOROthia zide (HYDRODiuril) 12.5 MG tablet Take 12.5 mg by mouth 1 (one) time each day. Active loratadine (Claritin) 10 MG tablet Take 1 tablet (10 mg) by mouth 1 (one) time each day. Active metFORMIN (Glucophage) 500 MG tablet Take 1 tablet (500 mg) by mouth 2 (two) times a day with meals. Active pregabalin (Lyrica) 75 MG capsule Take 1 capsule (75 mg) by mouth 2 (two) times a day. Active traZODone (Desyrel) 50 MG tablet Take 50 mg by mouth every night. Active lisinopril 5 MG tablet Take 1 tablet (5 mg) by mouth 1 (one) time each day. Active buPROPion XL (Wellbutrin XL) 150 MG 24 hr tablet 1 tablet (150 mg). 3 Active diclofenac (Voltaren) 1 % topical gel 3 Active estradiol (Climara) 0.075 MG/24HR 3 Active ibuprofen 800 MG tablet TAKE 1 TABLET BY MOUTH EVERY 6 TO 8 HOURS NEEDED FOR PAIN 2 Active levothyroxine (Synthroid, Levoxyl) 25 MCG tablet 3 Active lidocaine (Lidoderm) 5 % patch 3 Active oxyCODONE (Roxicodone) 10 MG immediate release tablet 3 Active Active Problems Problem Noted Date Diagnosed Date CKD (chronic kidney disease) stage 2, GFR 60-89 ml/min 03/17/2022 Essential hypertension 03/17/2022 Microalbuminuria 03/17/2022 Immunizations Immunization Administration Dates Next Due Influenza, injectable, quadrivalent 06/27/2019 Influenza, injectable, quadr ivalent, preservative free 04/14/2022,07/01/2021,04/16/2020,2017,05/13/2016 TD (adult), 2 Lf tetanus tox oid, preservative free, adsorbed 11/25/1996 Family History Medical History Relation Name Comments Rheum arthritis Maternal Great-Grandmother Diabetes Mother Heart attack Mother Hypertension Mother Kidney failure Mother Relation Name Status Comments Maternal Great-Grandmother Mother Social History Tobacco Use Types Packs/Day Years Used Date Smoking Tobacco: Never Smokeless Tobacco: Never Alcohol Use Standard Drinks/Week Comments Yes 0 (1 standard drink = 0.6 oz pur e alcohol) Comments Unknown Sex and Gender Information Value Date Recorded Sex Assigned at Female 05/03/2024 12:54 PM EDT Legal Sex Female 8:50 PM EDT Gender Identity Female 05/03/2024 12:54 PM EDT Sexual Orientation Straight 05/03/2024 12 :54 PM EDT Last Filed Vital Signs Vital Sign Reading Time Taken Comments Blood Pressure 164/101 04/09/2023 12:56 PM EDT Pulse 90 04/09/2023 12:56 PM EDT Temperature - - Respiratory Rate 16 04/09/2023 12:56 PM EDT Oxygen Saturation 99% 04/09/2023 12:56 PM EDT Inhaled Oxygen Concentration - - Weight 87.7 kg (193 lb 6.4 oz) 04/09/2023 12:56 PM EDT Height 162.6 cm (5' 4 ) 03/17/2022 1:54 PM EDT Body Mass Index 33.2 03/17/2022 1:54 PM EDT Plan of Treatment Upcoming Encounters Date Type Department Care Team (Late st Contact Info) Description 02/24/2025 8:40 AM EDT Office Visit Psychiatric [address] [place] [address] Sylvia Griffith, [employer] [address] [address] Health Maintenance Due Date Last Done Comments [facility]-Depression Screening 1971 [facility]-HIV Screening 1971 [facility]-Infant/Child/Adol SDOH Screenings 1971 [id number] Vaccine (#1) 09/18/1976 [facility]- SDOH Screenings 09/18/1989 [facility]-Adult SDOH Screenings 09/18/1989 [facility]-Hepatitis B Vaccines (1 of 3 - 19+ 3-dose series) 09/18/1990 [facility]-Pap Smear 09/18/1992 [facility]-DTaP,Tdap,and Td Vaccines (1 - Tdap) 11/26/1996 11/25/1996 [facility]-Cervical Cancer Screening 09/18/2001 [facility]-HPV/Cotest 09/18/2001 CT Colonography 09/18/2016 Colonoscopy 09/18/2016 FIT-DNA 09/18/2016 FIT 09/18/2016 FOBT 09/18/2016 Sigmoidoscopy 09/18/2016 [facility]-Colorectal Cancer Screening 09/18/2016 [facility]-Breast Cancer Screening 09/18/2021 [facility]-Pneumococcal Vaccine: 50+ Years (1 of 1 - PCV) 09/18/2021 [facility]-Zoster Vaccines (1 of 2) 09/18/2021 [facility]-Influenza Vaccine (#1) 03/06/202504/14, 07/01/2021, 04/16/2020, Additional history exists [facility]-Hepatitis C Screening Completed 06/11/2015 [facility]-Obesity Intervention Completed 03/17/2022 HPV Vaccines Aged Out No longer eligi ble based on patient's age to complete this topic [facility]-HIB Vaccines Aged Out No longer e ligible based on patient's age to complete this topic [facility]-Hepatitis A Vaccines Aged Out No longer eligible based on patient's age to complete this topic [facility]-IPV Vaccines Aged Out No longer e ligible based on patient's age to complete this topic [facility]-Rotavirus Vaccines Aged Out No lo nger eligible based on patient's age to complete this topic Procedures Procedure Name Priority Date/Time Associated Diagnosis Comments HEPATITIS C ANTIBODY W/REFLEX TO HCV QUANT PCR Routine 06/11/2015 9:05 AM EST from Last 3 Months or Most Recently Relevant to Health Maintenance Results * Hepatitis C Antibody (06/11/2015 9:05 AM EST) Hepatitis C Antibody NEGATIVE Reference Range: Negative SUNQUEST 06/11/2015 9:05 AM EST 06/11/2015 10:17 AM EST us Ayse Purdy APRN LAB BLOOD ORDERABLES Final Res ult SUNQUEST from Last 3 Months or Most Recently Relevant to Health Maintenance Insurance [facility] MEDICAID Care Teams Parts Analyst Relationship Specialty Start Date End Date Roxanne Chong APRN [address] [facility] [place] [address] PCP - General 11/16/20
[2025-02-22 12:59] LABS: Microscopic, Urine URINE MICROSCOPIC (MICROSCOPIC)
[2025-02-22 13:28] LABS: Hematocrit 32.9 % (37.0-47.0); Hemoglobin 11.2 g/dL (12.2-16.2); Mean Corpuscular HGB Conc 34.0 g/dL (31.8-35.4); Mean Corpuscular Hemoglobin 29.6 pg (27.0-31.2); Mean Corpuscular Volume 86.8 fl (81-99); Nucleated Red Blood Cells % 0 %; Platelet Count 275 K/mm3 (142-424); Red Blood Count 3.79 M/mm3 (4.20-5.40); Red Cell Distribution Width-SD 44.5 fL; White Blood Count 4.7 K/mm3 (4.8-10.8)
[2025-02-22 13:40] LABS: Bilirubin,Urine Negative (Negative); Color,Urine YELLOW (Yellow); Glucose,Urine (UA) Negative (Negative); Ketones,Urine Negative (Negative); Leukocyte Esterase,Urine 2+ (Negative); PH,Urine 7.0 (5.0-8.5); Protein,Urine Negative (Negative); Specific Gravity, Urine 1.015 (1.005-1.030); Urobilinogen,Urine 0.2 EU/dl (0.2)
[2025-02-22 14:06] LABS: Albumin Level 4.5 g/dl (3.5-5.0); Anion Gap 14.2 mEq/L (5-15); Blood Urea Nitrogen 9 mg/dl (7-17); Calcium 9.7 mg/dl (8.4-10.2); Carbon Dioxide 29 mmol/L (22.0-30.0); Chloride 104 mmol/L (98-107); Creatinine,Serum 0.70 mg/dl (0.52-1.04); Estimated Glomerular Filt Rate 88 ml/min (>60); GFR (African American) 106 ML/MIN (>60); Glucose 108 mg/dl (74-100); Phosphorous 3.3 mg/dl (2.5-4.5); Potassium 4.2 mmoL/L (3.5-5.1); Sodium 143 mmol/L (136-145)
[2025-02-22 14:49] LABS: Bacteria,Urine 1+ /lpf; Squamous Epithelial Cell,Urine Occasional #/hpf (0-5)
== END 2025-02-22 23:59 | disposition home or self-care (01) ==
LOC: LAB 12:55
PROVIDERS: PCP Nurse Practitioner Family; Visit Provider Internal Medicine Nephrology
DX: N18.2 Chronic kidney disease, stage 2 (mild) (principal); R80.9 Proteinuria, unspecified
CPT/HCPCS: 36415; 80069; 81001; 82570; 84156; 85027; 87086; 87088; 87186

== ENCOUNTER 2025-03-20 12:19 | Day surgery (SDC) | payer OTHER, SELFPAY ==
--- NOTE | 2025-03-15 16:31 | EXP.HP ---
History of Present Illness *Admission Date: 03/20/25 *History of present illness: Mrs. Cohn is a 54-year-old female who is here for screening colonoscopy. The patient has never had a colonoscopy. She does have some opioid-induced constipation and does note some occasional mucus with her bowel movement. She did have a negative Cologuard a few years ago. The examination is deemed medically necessary for screening colonoscopy. The patient has been seen, interviewed and examined prior to the procedure by both myself and the anesthesia provider. [facility] Disclaimer: The information contained in this section may have been updated after the patient was seen, as this information can be updated by other users. Medical History Hormone replacement therapy Polysubstance abuse Encounter for medication refill GERD (gastroesophageal reflux disease) Family history of ischemic heart disease before age 50 Anginal equivalent This patient's Story risk score was 2.4%. Using the ASCVD risk photographic hand developer her 10-year risk is 5.9%. I thought she might benefit from a calcium coronary score however at this time she is seeing cardiology and having an echocardiogram and stress test. Will see if they want to go further with this type of test in the future. Bronchitis Decreased libido Stage 2 chronic kidney disease Hot flashes due to menopause Chronic kidney disease HLD (hyperlipidemia) Palpitations HTN (hypertension) Tachycardia Mitral valve prolapse Type 2 diabetes mellitus Spinal stenosis Fibromyalgia Neuropathy Surgical History History of tonsillectomy History of cholecystectomy Previous back surgery History of bladder surgery H/O shoulder surgery History of hysterectomy with oophorectomy has left ovary Family History Other Family history of diabetes mellitus type II Family history of myocardial infarction Family history of stroke Social History Smoking Status: Never smoker second hand exposure: No alcohol intake: never substance use type: denies use current occupational status: other Travel in the last 8 weeks?: None household members: spouse housing: house current occupation: [employer] current occupational exposures/hazards: No caffeine: No Have you lived/traveled outside US in past 30 days?: No Contact w/someone who lives/traveled outside US past 30 days?: No Exposure to someone with infectious disease in past 14 days?: No Do you have a fever (greater than 100.4 F or 38 C)?: No Have you tested positive for COVID-19?: No Exposed to someone with COVID-19 in past 14 days?: No Do you have a sore throat?: No Do you have a cough?: No Do you have any weakness?: No Do you have any diarrhea?: No Are you experiencing any unusual bleeding?: No Do you have any muscle aches/pain?: No Do you have any abdominal pain?: No Are you experiencing loss of taste or smell?: No Other Medical History Have you received the Flu Vaccine for this season: No Have you received the Pneumonia Vaccine: No Review of Systems Review of Systems Review of systems (narrative): Negative *Cardiovascular Comments: Negative *Gastrointestinal Comments: Negative *Genitourinary Comments: Negative *Musculoskeletal Comments: Negative *Neurologic Comments: Negative Meds Home Medications and Allergies Home Medications ?Medication ?Instructions ?Recorded ?Confirmed ?Type aspirin 81 mg tablet,delayed 81 mg PO DAILY #60 tabs 07/01/21 03/20/25 Rx release (Adult Aspirin Regimen) lidocaine 5 % topical patch 1 patch topical DAILY #30 ea 10/01/22 03/20/25 Rx fluticasone propionate 50 See Rx Instructions .Route 09/18/23 03/20/25 Rx mcg/actuation nasal .COMPLEX #16 grams spray,suspension estradiol valerate 20 mg/mL 20 mg IM Q4W 02/09/24 03/20/25 History intramuscular oil loratadine 10 mg tablet 10 mg PO DAILY 90 days #90 tabs 03/24/24 03/20/25 Rx esomeprazole magnesium 20 mg 20 mg PO BID #180 caps 04/15/24 03/20/25 Rx capsule,delayed release (Nexium) ezetimibe 10 mg tablet See Rx Instructions .Route 10/05/24 03/20/25 Rx .COMPLEX #90 tabs fenofibrate 160 mg tablet See Rx Instructions .Route 11/29/24 03/20/25 Rx .COMPLEX #90 tabs levothyroxine 25 mcg tablet See Rx Instructions .Route 11/30/24 03/20/25 Rx .COMPLEX #90 tabs lisinopril 10 mg tablet 10 mg PO DAILY #90 tabs 11/30/24 03/20/25 Rx metformin 500 mg tablet 500 mg PO ONCE #90 tabs 11/30/24 03/20/25 Rx ondansetron 4 mg disintegrating 4 mg PO Q8H PRN nausea and 11/30/24 03/20/25 Rx tablet vomiting #20 tabs cholecalciferol (vitamin D3) 50 50 mcg PO DAILY 60 days #60 caps 01/19/25 03/20/25 Rx mcg (2,000 unit) capsule hydrocodone 10 mg-acetaminophen 10 tab PO DAILY 01/27/25 03/20/25 History 325 mg tablet pregabalin 150 mg capsule 150 mg PO DAILY 01/27/25 03/20/25 History sodium,potassium,mag sulfates 17.5 See Rx Instructions PO .COMPLEX 03/07/25 Rx gram-3.13 gram-1.6 gram oral soln #354 mL (Suprep Bowel Prep Kit) sodium sul 1.479 gram-potas ch See Rx Instructions PO PER PKG DIR 03/16/25 Rx 0.188 gram-magnes sul 0.225 gram colonscopy #24 tabs tablet (Sutab) New Prescriptions to Start Prescriptions: Allergies Allergy/AdvReac Type Severity Reaction Status Date / Time atorvastatin (From LIPITOR) Allergy Unknown MUSCLE Verified 03/20/25 12:34 SORENESS chlorpheniramine (From Allergy Unknown I-RASH Verified 03/20/25 12:34 COMTREX FLU THERAPY) phenylephrine (From COMTREX Allergy Unknown I-RASH Verified 03/20/25 12:34 FLU THERAPY) [id number]-RGS-PqU Reductase AdvReac Intermediate Muscle Pain Verified 03/20/25 12:34 Inhibitor (Gqfsnpd-Gps-Sxw Reductase Inhibitor) Exam *Routine HEENT Exam Head: Present normocephalic Eye: Present EOMI and PERRL ENT: Present mucous membranes moist *Routine Neck Exam Neck: Present supple *Routine Respiratory Exam Respiratory: Present CTA bilaterally *Routine Cardiovascular Exam Cardiovascular: Present RRR *Routine Abdominal Exam Abdominal: Present soft and normoactive bowel sounds; Absent tenderness *Routine Rectal Exam Rectal:: deferred *Routine Genitalia Exam Genitalia:: deferred *Routine Extremities Exam Extremities: Absent cyanosis, clubbing or edema *Routine Skin Exam Skin: Present warm; Absent rash *Routine Neurological Exam Neurological: Present alert and oriented X3 Assessment and Plan *Assessment and plan (1) Screening for colon cancer: Status: Acute Category: Medical Code(s): Z12.11 - Encounter for screening for malignant neoplasm of colon (2) Mucus in stool: Status: Acute Category: Medical Code(s): R19.5 - Other fecal abnormalities (3) Opioid-induced constipation: Status: Acute Category: Medical Code(s): K59.03 - Drug induced constipation; T40.2X5A - Adverse effect of other opioids, initial encounter Plan A/P: 1. Screening for colon cancer is the preprocedural diagnosis. The patient will be anesthetized/sedated using MAC sedation. The patient has been seen and examined. Cardiac and lung assessment prior to the examination is stable. Proceed with planned screening colonoscopy.
[2025-03-20 12:38] VITALS: BMI 34.0
[2025-03-20 12:39] VITALS: BP 138/91; PULSE 104; RESP 16; TEMP 36.4; O2SAT 98
[2025-03-20] MEDS: LACTATED RINGERS 1000ML 1,000 ML 50 ML IV (12:46)
--- NOTE | 2025-03-20 13:03 | P.PNANES_ITS ---
[facility] Disclaimer: The information contained in this section may have been updated after the patient was seen, as this information can be updated by other users. Medical History Hormone replacement therapy Polysubstance abuse Encounter for medication refill GERD (gastroesophageal reflux disease) Family history of ischemic heart disease before age 50 Anginal equivalent This patient's [place] risk score was 2.4%. Using the ASCVD risk solid center winder her 10-year risk is 5.9%. I thought she might benefit from a calcium coronary score however at this time she is seeing cardiology and having an echocardiogram and stress test. Will see if they want to go further with this type of test in the future. Bronchitis Decreased libido Stage 2 chronic kidney disease Hot flashes due to menopause Chronic kidney disease HLD (hyperlipidemia) Palpitations HTN (hypertension) Tachycardia Mitral valve prolapse Type 2 diabetes mellitus Spinal stenosis Fibromyalgia Neuropathy Surgical History History of tonsillectomy History of cholecystectomy Previous back surgery History of bladder surgery H/O shoulder surgery History of hysterectomy with oophorectomy has left ovary Family History Other Family history of diabetes mellitus type II Family history of myocardial infarction Family history of stroke Social History Smoking Status: Never smoker second hand exposure: No alcohol intake: never substance use type: denies use current occupational status: other Travel in the last 8 weeks?: None household members: spouse housing: house current occupation: [employer] current occupational exposures/hazards: No caffeine: No Have you lived/traveled outside US in past 30 days?: No Contact w/someone who lives/traveled outside US past 30 days?: No Exposure to someone with infectious disease in past 14 days?: No Do you have a fever (greater than 100.4 F or 38 C)?: No Have you tested positive for COVID-19?: No Exposed to someone with COVID-19 in past 14 days?: No Do you have a sore throat?: No Do you have a cough?: No Do you have any weakness?: No Do you have any diarrhea?: No Are you experiencing any unusual bleeding?: No Do you have any muscle aches/pain?: No Do you have any abdominal pain?: No Are you experiencing loss of taste or smell?: No [facility] Anesthesia Checklist Patient Identification Patient Identification: Arm Band Structural Data Admitted From: Home Planned Operative Procedure/s: Colonoscopy Consent for Planned Operative Procedure(s) Verified: Yes Verified Documents: Surgical Consent and History and Physical NPO Status Verified Time NPO: 10:00 (finish prep) Additional verifications Anesthesia Reactions: No Hx Blood Transfusions: No Blood Transfusion Reaction: No Airway Assessment Mallampati Score:: Class II C-Spine Mobility Assessed: Yes TMJ Mobility Assessed: Yes Dentition: Good Dentition Neurological Assessment Level of Consciousness: Awake, Alert and Appropriate Anesthesia Plan Anesthesia Risk discussed: Yes Anesthesia Plan: Verified ASA Class: II Anesthesia Type: MAC
--- NOTE | 2025-03-20 13:20 | P.PCN_ITS ---
[facility] Procedure Note Date: 03/20/25 Time: 14:07 Procedure Note:: Colonoscopy Procedure Report: Colonoscopy with cold snare polypectomy Endoscopist: Emmanuel Stephens II, MD Referring physician: KAITLYN Lemos Date of Procedure: March 20, 2025 Equipment: Olympus [id number] adult colonoscope Sedation: MAC sedation Indication: Mrs. Cohn is a 54-year-old female who is here for screening colonoscopy. The patient does state that she had a colonoscopy many years ago (more than a decade ago). She does have some opioid-induced constipation and does note some occasional mucus with her bowel movement. She did have a negative Cologuard a few years ago. The patient reports no bright red rectal bleeding, weight loss or family history of colon cancer. The examination is deemed medically necessary for screening colonoscopy. Procedure: Prior to the procedure, a history and physical exam was performed, and patient's medications and allergies were reviewed. The risks, benefits and alternatives of the sedation and procedure were discussed with the patient. All questions w ere answered and informed consent was obtained. The patient was brought to the procedure room. Patient identification and proposed procedure were verified by the physician and the nurse. The patient was placed in a left lateral decubitus position and the scope was passed under direct vision. Throughout the procedure, the patient's blood pressure, pulse, and oxygen saturations were monitored continuously. The colonoscopy was accomplished without difficulty. The patient tolerated the procedure well. Findings: On digital rectal examination there was normal rectal tone. There were no external hemorrhoids. The colonoscope was introduced through the anal canal to the rectum and advanced to the cecum. The ileocecal valve and appendiceal orifice were identified. The scope was advanced a short distance into the ileum which appeared grossly normal. The scope was then withdrawn into the colon. The cecum, ascending, transverse and descending colon were grossly normal. There were a few very shallow diverticuli in the sigmoid colon. There was a diminutive 3 to 4 mm polyp in the sigmoid colon removed via cold snare polypectomy. There were no other mucosal abnormalities identified. Upon retroflexion within the rectum there were grade 1 internal hemorrhoids. The preparation was excellent throughout with Newcomb Preparation Score of 9. The cecal time was 12 minutes. Impression: 1. Diminutive 3 to 4 mm sigmoid polyp 2. Mild sigmoid diverticulosis 3. Grade 1 internal hemorrhoids Plan: I will follow-up the polyp histology and recommend repeat screening/surveillance colonoscopy again in 7 to 10 years based upon the pathology. I would recommend initiation of a fiber bowel regimen (combined MiraLAX plus Metamucil) on a regular and daily basis.
[2025-03-20 14:10] VITALS: BP 114/70; PULSE 81; RESP 16; TEMP 36.1; O2SAT 98
[2025-03-20 14:20] VITALS: BP 126/79; PULSE 74; O2SAT 95
[2025-03-20 14:30] VITALS: BP 125/80; PULSE 76; O2SAT 98
[2025-03-20 14:40] VITALS: BP 122/77; PULSE 83; RESP 16; O2SAT 98
[2025-03-20 19:36] LABS: POC Glucose,Bedside 156 gm/dL (70-110)
== END 2025-03-20 14:40 | disposition home or self-care (01) ==
PROVIDERS: PCP Nurse Practitioner Family; Visit Provider Internal Medicine Gastroenterology
PROC: 0DJD8ZZ Inspection of Lower Intestinal Tract, Via Natural or Artificial Opening Endoscopic (ICD-10-PCS; CPT 45378; principal; 2025-03-20 14:00)
DX: Z12.11 Encounter for screening for malignant neoplasm of colon (principal); K63.5 Polyp of colon; K57.30 Diverticulosis of large intestine without perforation or abscess without bleeding; K64.0 First degree hemorrhoids; K59.03 Drug induced constipation; T40.2X5A Adverse effect of other opioids, initial encounter; R19.5 Other fecal abnormalities; E11.40 Type 2 diabetes mellitus with diabetic neuropathy, unspecified; E11.22 Type 2 diabetes mellitus with diabetic chronic kidney disease; I12.9 Hypertensive chronic kidney disease with stage 1 through stage 4 chronic kidney disease, or unspecified chronic kidney disease; N18.2 Chronic kidney disease, stage 2 (mild); M79.7 Fibromyalgia; I34.1 Nonrheumatic mitral (valve) prolapse; M48.00 Spinal stenosis, site unspecified; I20.89 Other forms of angina pectoris; Z79.82 Long term (current) use of aspirin; Z79.899 Other long term (current) drug therapy; Z79.84 Long term (current) use of oral hypoglycemic drugs; Z79.890 Hormone replacement therapy; Z88.8 Allergy status to other drugs, medicaments and biological substances
CPT/HCPCS: 45385; 82962; J2003; J2704; J7120